=== PATIENT | female | born 1960 | race Caucasian/White ===

== ENCOUNTER 2016-11-22 06:02 | Inpatient (IN) | payer BC ==
--- NOTE | 2016-11-22 05:54 | PCM.PREANE ---
Preanesthetic Assessment - Anesthesia/Transfusion/Family Hx Anesthesia History: Prior Anesthesia Without Reaction Family History of Anesthesia Reaction: No Transfusion History: No Prior Transfusion(s) Intubation History: Unknown - Review of Systems Pulmonary: No Symptoms (quit smoking in 2003.), Cough Cardiovascular: No Symptoms (History of HTN) Gastrointestinal: No symptoms (History of GERD) Neurological: No Symptoms (History of Rheumotoid arthritis), Paresthesia (left foot noted to have some paresthesia's.) Other: Reports: Easy Bruising, Diabetes (AM blood sugar @ 0632 = 112), Thyroid Problems, Sinus Problem (1 week ago patient placed on zithromax for sinus infection.) - Physical Assessment NPO Status Date: 11/21/16 NPO Status Time: 21:00 Pulse: 80 O2 Sat by Pulse Oximetry: 94 Respiratory Rate: 16 Blood Pressure: 135/76 Temperature: 36.6 C Height: 1.52 m Weight: 101 kg ASA Class: 2 Mental Status: Alert & Oriented x3 Airway Class: Mallampati = 2 Dentition: Reports: Ammon(s), Missing Tooth/Teeth, Caries Thyro-Mental Finger Breadths: 3 Mouth Opening Finger Breadths: 3 ROM/Head Extension: Full Lungs: Clear to auscultation, Normal respiratory effort Cardiovascular: Regular Rate, Regular Rhythm - Lab Values: Laboratory Last Values MRSA (PCR) Negative 11/10/16 14:39 - Imaging/EKG Impressions: EKG: Normal Sinus Rhythm CXR: Negative - Allergies Allergies/Adverse Reactions: Allergies Allergy/AdvReac Type Severity Reaction Status Date / Time dapagliflozin [From [facility]] Allergy Rash Verified 11/19/16 09:43 hydrochlorothiazide Allergy vision Verified 11/19/16 09:43 changes - Anesthesia Plan Pre-Op Medication Ordered: None - Acknowledgements Anesthesia Type Planned: Spinal Pt an Appropriate Candidate for the Planned Anesthesia: Yes Alternatives and Risks of Anesthesia Discussed w Pt/Guardian: Yes Pt/Guardian Understands and Agrees with Anesthesia Plan: Yes PreAnesthesia Questionnaire HEENT History: Reports: Impaired vision, Other (see below) Other HEENT History: wears glasses Cardiovascular History: Reports: High cholesterol, Hypertension Respiratory History: Reports: None Gastrointestinal History: Reports: GERD Genitourinary History: Reports: Other (see below) Other Genitourinary History: stress incontinence, urinary disorder [employer] History: Reports: Other (see below) Other OB/BYN History: vaginal hemorrhage, vaginitis Musculoskeletal History: Reports: Osteoarthritis, RA Neurological History: Reports: None Psychiatric History: Reports: None Endocrine/Metabolic History: Reports: Diabetes, type II, Hypothyroidism, Vitamin D deficiency Hematologic History: Reports: Other (see below) Other Hematologic History: leukocystosis Immunologic History: Reports: None Oncologic (Cancer) History: Reports: Other (see below) Other Oncologic History: endometrial Dermatologic History: Reports: Other (see below) Other Dermatologic History: groin furnucle, cutaneous candidasis - Past Surgical History Head Surgeries/Procedures: Reports: None GI Surgical History: Reports: Colonoscopy, Hernia repair/other, Other (see below ) Other GI Surgeries/Procedures: sigmoidoscopy Female Surgical History: Reports: Hysterectomy, Tubal ligation Musculoskeletal Surgical History: Reports: Shoulder surgery, Other (see below) Other Musculoskeletal Surgeries/Procedures:: knee surgery - SUBSTANCE USE Smoking Status *Q: Former Smoker Recreational Drug Use History: No - HOME MEDS Home Medications: Home Meds Aspirin [Halfprin] 81 mg PO DAILY 11/19/16 [History] Calcium Carbonate [Calcium] 500 mg PO DAILY 11/19/16 [History] Canagliflozin/Metformin HCl [Invokamet 150-1,000 mg Tablet] 1 tab PO BID [History] Dulaglutide [Trulicity] 0.5 ml SQ FR 11/19/16 [History] Ergocalciferol (Vitamin D2) [Vitamin D2] 50,000 units PO WE 11/19/16 [History] Ezetimibe [Zetia] 10 mg PO DAILY 11/19/16 [History] Fish Oil/Borage/Flax/Om3,6,9#1 [[place] 3-6-9 Complex Softgel] 1 cap PO DAILY [History] Furosemide [Lasix] 20 mg PO DAILY PRN 11/19/16 [History] Insulin Aspart [NovoLOG] 23 units SQ 1700 11/19/16 [History] Insulin Glarg,Human.Rec.Analog [LantUS Solostar] 40 units SQ BID 11/19/16 [ History] Levothyroxine Sodium [Levothyroxine Sodium] 50 mcg PO DAILY 11/19/16 [History] Levothyroxine [Levothyroxine] 200 mcg PO DAILY 11/19/16 [History] Lisinopril [Prinivil] 40 mg PO DAILY 11/19/16 [History] Multivitamin [Daily Adriana] 1 tab PO DAILY 11/19/16 [History] Omeprazole Magnesium [Prilosec Otc] 40 mg PO DAILY 11/19/16 [History] Oxybutynin Chloride [Oxybutynin Chloride ER] 10 mg PO DAILY 11/19/16 [History] Rosuvastatin [Crestor] 10 mg PO BEDTIME 11/19/16 [History] Simethicone 125 mg PO BID PRN 11/19/16 [History] - CURRENT (IN HOUSE) MEDS Current Meds: Current Medications Diphtheria/Tetanus/Acell Pertussis (Boostrix) 0.5 ml IM .ONCE ONE Stop: 11/21/16 12:16 Lactated Ringer's (Ringers, Lactated) 1,000 mls @ 125 mls/hr IV ASDIRECTED BERTA Lidocaine/Sodium Bicarbonate (Buffered Lidocaine 1% In Ns 8.4%) 0.25 ml IV ONETIME PRN PRN Reason: Prior to IV Start Sodium Chloride (Saline Flush) 10 ml FLUSH ASDIRECTED PRN PRN Reason: Keep Vein Open
[~2016-11-22 06:02] MED LIST: Diphtheria,Pertussis(Acell),Tetanus Vaccine 0.5 ML SDV inactive IM ONE; Lactated Ringers 1,000 ML IV SCH; Lidocaine 1%/Sod Bicarbonate in NS 8.4% 1 ML Syringe IV PRN; Sodium Chloride 0.9% 10 ML Syringe FLUSH PRN; ceFAZolin 1 GM Vial ONE
[2016-11-22] MEDS ORDERED: Ondansetron 4 MG/2 ML SDV ONE (06:23)
[2016-11-22] MEDS ORDERED: ceFAZolin 1 GM Vial ONE (06:23)
[2016-11-22] MEDS ORDERED: Lactated Ringers 1,000 ML ONE (06:23)
[2016-11-22] MEDS ORDERED: Ketorolac 30 MG/ML SDV ONE (06:23)
[2016-11-22] MEDS ORDERED: Midazolam 1 MG/ML 2 ML SDV ONE (06:24)
[2016-11-22] MEDS ORDERED: fentaNYL 100 MCG/2 ML SDV ONE (06:24)
[2016-11-22] MEDS ORDERED: Morphine PF 10 MG/10 ML SDV ONE (06:24)
[2016-11-22] MEDS ORDERED: Propofol 200 MG/20 ML SDV ONE ×2 (06:24→08:20)
[2016-11-22] MEDS ORDERED: Bisacodyl 5 MG Tab PO PRN (06:30)
[2016-11-22] MEDS ORDERED: Ondansetron 4 MG/2 ML SDV IVPUSH PRN ×2 (06:30→07:25)
[2016-11-22] MEDS ORDERED: Phenylephrine/Normal Saline 100 MCG/ML 10 ML Syringe ONE ×2 (07:15→08:29)
[2016-11-22] MEDS ORDERED: ePHEDrine 50 MG/ML SDV IVPUSH PRN (07:25)
[2016-11-22] MEDS ORDERED: diphenhydrAMINE 50 MG/ML SDV IVPUSH PRN (07:25)
[2016-11-22] MEDS ORDERED: Phenylephrine 1 MG in Sodium Chloride 0.9% 10 ML IV SCH (07:30)
[2016-11-22] MEDS: ceFAZolin 1 GM Vial ONE ×2 (07:42→08:20)
[2016-11-22] MEDS: Bupivacaine 0.25% 30 ML SDV ONE ×2 (07:42→08:24)
[2016-11-22] MEDS: Iodine/Sodium Iodide 2% Tincture 30 ML Bottle ONE ×2 (07:43→08:14)
[2016-11-22] MEDS: Morphine 8 MG, EPINEPHrine 0.3 MG, Cefuroxime 750 MG, Ketorolac 30 MG, Sodium Chloride ... ONE ×15 (07:44→20:03)
[2016-11-22] MEDS ORDERED: fentaNYL 100 MCG/2 ML SDV IVPUSH PRN (08:30)
[2016-11-22] MEDS ORDERED: HYDROmorphone 0.5 MG/0.5 ML Syringe IVPUSH PRN (08:30)
[2016-11-22] MEDS ORDERED: ePHEDrine/Normal Saline 25 MG/5 ML Syringe ONE (08:58)
[2016-11-22] MEDS ORDERED: Morphine 2 MG/ML Syringe IVPUSH PRN (09:00)
--- NOTE | 2016-11-22 09:11 | PCM.POSTAN ---
POST ANESTHESIA ASSESSMENT - MENTAL STATUS Mental Status: alert - VITAL SIGNS Pulse Rate: 84 SaO2: 94 Resp Rate: 16 Blood Pressure: 108/54 Temperature: 37.6 C - RESPIRATORY Respiratory Status: respiratory rate WNL, airway patent, O2 saturation stable, supplemental oxygen - CARDIOVASCULAR CV Status: pulse rate WNL, blood pressure stable - GASTROINTESTINAL GI Status: no symptoms - POST OP HYDRATION Hydration Status: adequate & stable
[2016-11-22] MEDS ORDERED: Naloxone 0.4 MG/ML SDV IVPUSH PRN (10:00)
--- NOTE | 2016-11-22 11:09 | PCM.OPNOTE ---
- General Post-Op/Procedure Note Date of Surgery/Procedure: 11/22/16 Operative Procedure(s): right total knee arthroplasty Pre Op Diagnosis: right total knee arthroplasty Post-Op Diagnosis: Same Anesthesia Technique: Local, MAC, Spinal Primary Surgeon: Paul Bennett Anesthesia Provider: Janett Herring [employer] Servicer Helper: Christen Gutierrez Industrial Gas Servicer Helper: Do Daniels EBL in mLs: 250 Complications: None Condition: Good Free Text/Narrative:: Intake & Output 11/21/16 11/22/16 11/22/16 22:59 06:59 14:59 Intake Total 400 Output Total 500 Balance -100 size 4 femur s size 3 tibia size 9mm poly 29x9
--- NOTE | 2016-11-22 11:43 | CR ---
Right knee: AP and lateral views of the right knee were obtained. Comparison: No previous knee study. Knee prosthesis is seen. Components are aligned. Soft tissue air is noted from the surgical procedure. Underlying bony structures are intact. Impression: 1. Satisfactory appearance of recently placed right knee prosthesis. Diagnostic code #2
[2016-11-22] MEDS: Acetaminophen/oxyCODONE 325-5 MG Tab PO PRN ×3 (12:22→21:34)
--- NOTE | 2016-11-22 13:23 | PCM.CONS ---
[id number] Date of Service: 11/22/16 Admit Problem/Dx: Admission Diagnosis/Problem Admission Diagnosis/Problem Osteoarthritis of knee Source of Information: Patient, Old records History Limitations: Reports: No limitations - History of Present Illness Initial Comments - Free Text/Narative: Malena is a 56yo female with PMH of obesity, IDDM, HTN, HLD, GERD, RA, OA, hypothyroidism, hypovitaminosis D, stress incontinence, endometrial cancer, and cutaneous candidias who is s/p Rt TKA with Dr. Bennett. She has had ongoing knee pain for years and decision made to undergo TKA. Postoperatively pain is under good control. No nausea thus far. Doing well, VSS. Onset of Symptoms: Reports: gradual Duration of Symptoms: Reports: Chronic Location: Reports: lower extremity, right Right Knee Pain Score (Numeric/FACES): 5 - Related Data Allergies/Adverse Reactions: Allergies Allergy/AdvReac Type Severity Reaction Status Date / Time dapagliflozin [From [facility]] Allergy Rash Verified 11/22/16 06:59 hydrochlorothiazide AdvReac vision Verified 11/22/16 12:18 changes Home Medications: Home Meds Calcium Carbonate [Calcium] 500 mg PO DAILY 11/19/16 [History] Canagliflozin/Metformin HCl [Invokamet 150-1,000 mg Tablet] 1 tab PO BID [History] Dulaglutide [Trulicity] 0.5 ml SQ FR 11/19/16 [History] Ergocalciferol (Vitamin D2) [Vitamin D2] 50,000 units PO WE 11/19/16 [History] Ezetimibe [Zetia] 10 mg PO DAILY 11/19/16 [History] Fish Oil/Borage/Flax/Om3,6,9#1 [[place] 3-6-9 Complex Softgel] 1 cap PO DAILY [History] Furosemide [Lasix] 20 mg PO DAILY PRN 11/19/16 [History] Insulin Aspart [NovoLOG] 23 units SQ 1700 11/19/16 [History] Insulin Glarg,Human.Rec.Analog [LantUS Solostar] 40 units SQ BID 11/19/16 [ History] Levothyroxine 200 mcg PO DAILY 11/19/16 [History] Levothyroxine Sodium 50 mcg PO DAILY 11/19/16 [History] Lisinopril [Prinivil] 40 mg PO DAILY 11/19/16 [History] Multivitamin [Daily Adriana] 1 tab PO DAILY 11/19/16 [History] Omeprazole Magnesium [Prilosec Otc] 40 mg PO DAILY 11/19/16 [History] Oxybutynin Chloride [Oxybutynin Chloride ER] 10 mg PO DAILY 11/19/16 [History] Rosuvastatin [Crestor] 10 mg PO BEDTIME 11/19/16 [History] Simethicone 125 mg PO BID PRN 11/19/16 [History] Acetaminophen/oxyCODONE [Percocet 325-5 MG] 1 - 2 tab PO Q4H PRN #60 tablet [Rx] Aspirin [Ecotrin] 325 mg PO BID #84 tab.ec 11/23/16 [Rx] Cyclobenzaprine [Flexeril] 10 mg PO TID PRN #40 tablet 11/23/16 [Rx] Past Medical History HEENT History: Reports: Impaired vision, Other (see below) Other HEENT History: wears glasses Cardiovascular History: Reports: High cholesterol, Hypertension Respiratory History: Reports: None Gastrointestinal History: Reports: GERD Genitourinary History: Reports: Other (see below) Other Genitourinary History: stress incontinence, urinary disorder HEALTH EDITOR History: Reports: Other (see below) Other OB/BYN History: vaginal hemorrhage, vaginitis Musculoskeletal History: Reports: Osteoarthritis, RA Neurological History: Reports: None Psychiatric History: Reports: None Endocrine/Metabolic History: Reports: Diabetes, type II, Hypothyroidism, Vitamin D deficiency Hematologic History: Reports: Other (see below) Other Hematologic History: leukocystosis Immunologic History: Reports: None Oncologic (Cancer) History: Reports: Uterine, Other (see below) Other Oncologic History: endometrial Dermatologic History: Reports: Other (see below) Other Dermatologic History: groin furnucle, cutaneous candidasis - Infectious Disease History Infectious Disease History: Reports: None - Past Surgical History Head Surgeries/Procedures: Reports: None HEENT Surgical History: Reports: None Cardiovascular Surgical History: Reports: None GI Surgical History: Reports: Colonoscopy, Hernia repair/other, Other (see below ) Other GI Surgeries/Procedures: sigmoidoscopy Female Surgical History: Reports: Hysterectomy, Tubal ligation Endocrine Surgical History: Reports: None Neurological Surgical History: Reports: None Musculoskeletal Surgical History: Reports: Shoulder surgery, Other (see below) Other Musculoskeletal Surgeries/Procedures:: knee surgery Oncologic Surgical History: Reports: None Dermatological Surgical History: Reports: None Social & Family History - Family History Family Medical History: Noncontributory - Tobacco Use Smoking Status *Q: Former Smoker Years of Tobacco use: 30 Used Tobacco, but Quit: Yes Month Tobacco Last Used: 2003 - Caffeine Use Caffeine Use: Reports: Tea - Recreational Drug Use Recreational Drug Use: No Drug Use in Last 12 Months: No H&P Review of Systems - Review of Systems: Review Of Systems: See Below General: Reports: no symptoms HEENT: Reports: no symptoms Pulmonary: Reports: No Symptoms. Denies: Shortness of Breath Cardiovascular: Reports: no symptoms. Denies: chest pain, palpitations Gastrointestinal: Reports: No symptoms, Mucous in stool Musculoskeletal: Reports: leg pain (rt knee/leg) Skin: Reports: no symptoms Psychiatric: Reports: no symptoms Neurological: Reports: No Symptoms Hematologic/Lymphatic: Reports: no symptoms Exam - Exam Exam: See Below - Vital Signs Vital Signs: Last Vital Signs Temp 98.8 F 11/22/16 12:00 Pulse 68 11/22/16 11:13 Resp 14 11/22/16 12:00 BP 86/59 L 11/22/16 12:00 Pulse Ox 98 11/22/16 12:00 Weight: 100.97 kg - Exam Quality Assessment: supplemental oxygen, DVT prophylaxis General: alert, oriented, cooperative HEENT: Conjunctiva clear, EACs clear, EOMI, Hearing intact, Mucosa moist & pink , Nares patent, Posterior pharynx clear, Pupils reactive Neck: supple, trachea midline Lungs: Clear to auscultation, Normal respiratory effort Cardiovascular: regular rate, regular rhythm, normal S1, normal S2 Abdomen: normal bowel sounds, soft (Female) Exam: Deferred Rectal (Female) Exam: Deferred Extremities: other (CMS + distally bilat; SCD's bilat; jaqueline wraps). No: edema Peripheral Pulses: 1+: dorsalis pedis (L), dorsalis pedis (R) Skin: warm Neurological: cranial nerves intact Neuro Extensive - Mental Status: alert, oriented x3, normal mood/affect, memory intact Neuro Extensive - Motor, Sensory, Reflexes: CN II-XII intact Psychiatric: alert, normal affect, normal mood - Patient Data Lab Results last 24 hrs: Laboratory Results - last 24 hr 11/22/16 11/22/16 Range/Units 06:32 09:10 POC Glucose 112 H 119 H (70-105) mg/dL Consult PN Assessment/Plan POD#: 0 Procedures: Procedures ASSAY OF FERRITIN (07/05/14) ASSAY OF FREE THYROXINE (10/23/14) ASSAY OF PREALBUMIN (07/05/14) ASSAY OF SERUM ALBUMIN (07/05/14) ASSAY THYROID STIM HORMONE (10/23/14) CHEST X-RAY 2VW FRONTAL&LATL (07/05/14) COMP SCREEN MAMMOGRAM ADD-ON (06/15/16) COMPLETE CBC W/AUTO DIFF WBC (07/05/14) COMPREHEN METABOLIC PANEL (10/23/14) CT ABD & PELV W/CONTRAST (07/22/16) CT THORAX W/DYE (07/22/16) GLYCOSYLATED HEMOGLOBIN TEST (07/05/14) LIPID PANEL (03/25/14) METABOLIC PANEL TOTAL CA (07/05/14) MR-STAPH DNA AMP PROBE (07/14/16) PROTHROMBIN TIME (07/05/14) ROUTINE VENIPUNCTURE (10/23/14) THROMBOPLASTIN TIME PARTIAL (07/05/14) TISSUE EXAM BY PATHOLOGIST (06/30/16) TRANSVAGINAL US NON-OB (05/09/15) VITAMIN D 25 HYDROXY (07/05/14) (1) S/P total knee arthroplasty SNOMED Code(s): 7384945947161, 628514394, 1217175304434 Code(s): Z96.659 - PRESENCE OF UNSPECIFIED ARTIFICIAL KNEE JOINT Priority: High Current Visit: Yes Qualifiers: Laterality: right Qualified Code(s): Z96.651 - Presence of right artificial knee joint (2) Osteoarthritis SNOMED Code(s): 044337736 Code(s): M19.90 - UNSPECIFIED OSTEOARTHRITIS, UNSPECIFIED SITE Priority: High Current Visit: Yes Qualifiers: Osteoarthritis location: knee Osteoarthritis type: primary Laterality: right Qualified Code(s): M17.11 - Unilateral primary osteoarthritis, right knee (3) Type 2 diabetes mellitus SNOMED Code(s): 69823195 Code(s): E11.9 - TYPE 2 DIABETES MELLITUS WITHOUT COMPLICATIONS Priority: High Current Visit: Yes Qualifiers: Diabetes mellitus complication status: with unspecified complications Diabetes mellitus joint terminal attack controller insulin use: with senior living use Qualified Code(s) : E11.8 - Type 2 diabetes mellitus with unspecified complications; Z79.4 - terminal manager (current) use of insulin (4) Obesity SNOMED Code(s): 417826495 Code(s): E66.9 - OBESITY, UNSPECIFIED Priority: High Current Visit: Yes Qualifiers: Obesity type: unspecified obesity type Obesity severity: morbid Qualified Code(s): E66.01 - Morbid (severe) obesity due to excess calories (5) HTN (hypertension) SNOMED Code(s): 62253468 Code(s): I10 - ESSENTIAL (PRIMARY) HYPERTENSION Priority: High Current Visit: No Qualifiers: Hypertension type: essential hypertension Qualified Code(s): I10 - Essential (primary) hypertension (6) HLD (hyperlipidemia) SNOMED Code(s): 92690806 Code(s): E78.5 - HYPERLIPIDEMIA, UNSPECIFIED Priority: Medium Current Visit: No Qualifiers: Hyperlipidemia type: unspecified Qualified Code(s): E78.5 - Hyperlipidemia , unspecified (7) Hypothyroid SNOMED Code(s): 23793986 Code(s): E03.9 - HYPOTHYROIDISM, UNSPECIFIED Priority: Medium Current Visit: No Qualifiers: Hypothyroidism type: unspecified Qualified Code(s): E03.9 - Hypothyroidism , unspecified (8) GERD (gastroesophageal reflux disease) SNOMED Code(s): 377141985 Code(s): K21.9 - GASTRO-ESOPHAGEAL REFLUX DISEASE WITHOUT ESOPHAGITIS Priority: Medium Current Visit: No Qualifiers: Esophagitis presence: esophagitis presence not specified Qualified Code(s) : K21.9 - Gastro-esophageal reflux disease without esophagitis (9) Rheumatoid arthritis SNOMED Code(s): 18015721 Code(s): M06.9 - RHEUMATOID ARTHRITIS, UNSPECIFIED Priority: Medium Current Visit: No Qualifiers: Laterality: unspecified laterality Problem List Initiated/Reviewed/Updated: Yes My Orders last 24 hours: My Active Orders 11/22/16 Dinner ADA Diabetic [[employer] Diet] [DIET] Heart Healthy Diet [DIET] Plan: S/P Rt TKA with Dr. Bennett; POD #0 -Pain management and DVT prophylax per Ortho/primary team -PT/OT -IS -VSS Chronic conditions: cont home meds IDDM- SSI coverage, AC/HS accuchecks- ADA diet HTN- heart healthy diet HLD Hypothyroid RA Stress incontinence Hx of cutaneous candidiasis- risk for postoperatively, monitor skin closely GERD- GI prophylax Other: CM/SW for assist with DC planning; plans dc home with Patient is Full Code status <Daylin Lauren - Last Filed: 11/23/16 19:27> H&P History of Present Illness - General Admit Problem/Dx: Admission Diagnosis/Problem Admission Diagnosis/Problem Osteoarthritis of knee Exam - Vital Signs Vital Signs: Last Vital Signs Temp 36.7 C 11/23/16 12:03 Pulse 92 11/23/16 12:03 Resp 14 11/23/16 12:03 BP 113/60 11/23/16 12:03 Pulse Ox 93 L 11/23/16 12:03 - Patient Data Lab Results last 24 hrs: Laboratory Results - last 24 hr 11/22/16 11/23/16 11/23/16 Range/Units 21:38 06:34 06:34 WBC 8.29 (3.98-10.04) K/mm3 RBC 3.95 L (3.98-5.22) M/mm3 Hgb 12.1 (11.2-15.7) gm/L Hct 36.5 (34.1-44.9) % MCV 92.4 (79.4-94.8) fl MCH 30.6 (25.6-32.2) pg MCHC 33.2 (32.2-35.5) g/dl RDW Std Deviation 46.3 (36.4-46.3) fL Plt Count 235 (182-369) K/mm3 MPV 9.8 (9.4-12.3) fl Neut % (Auto) 50.7 (34.0-71.1) % Lymph % (Auto) 33.4 (19.3-51.7) % [place] % (Auto) 13.4 H (4.7-12.5) % Eos % (Auto) 2.2 (0.7-5.8) Baso % (Auto) 0.2 (0.1-1.2) % Neut # (Auto) 4.20 (1.56-6.13) K/mm3 Lymph # (Auto) 2.77 (1.18-3.74) K/mm3 [place] # (Auto) 1.11 H (0.24-0.36) K/mm3 Eos # (Auto) 0.18 (0.04-0.36) K/mm3 Baso # (Auto) 0.02 (0.01-0.08) K/mm3 Sodium 137 (136-145) mEq/L Potassium 4.4 (3.5-5.1) mEq/L Chloride 102 (98-107) mEq/L Carbon Dioxide 26 (21-32) mEq/L Anion Gap 13.4 (5-15) BUN 14 (7-18) mg/dL Creatinine 0.9 (0.55-1.02) mg/dL Est Cr Clr Drug Dosing 50.73 mL/min Estimated GFR (MDRD) > 60 (>60) mL/min BUN/Creatinine Ratio 15.6 (14-18) Glucose 89 (74-106) mg/dL POC Glucose 118 H (70-105) mg/dL Calcium 8.5 (8.5-10.1) mg/dL Total Bilirubin 0.9 (0.2-1.0) mg/dL AST 15 (15-37) U/L ALT 27 (14-59) U/L Alkaline Phosphatase 59 (46-116) U/L Total Protein 6.2 L (6.4-8.2) g/dl Albumin 3.1 L (3.4-5.0) g/dl Globulin 3.1 gm/dL Albumin/Globulin Ratio 1.0 (1-2) 11/23/16 11/23/16 Range/Units 06:56 10:33 WBC (3.98-10.04) K/mm3 RBC (3.98-5.22) M/mm3 Hgb (11.2-15.7) gm/L Hct (34.1-44.9) % MCV (79.4-94.8) fl MCH (25.6-32.2) pg MCHC (32.2-35.5) g/dl RDW Std Deviation (36.4-46.3) fL Plt Count (182-369) K/mm3 MPV (9.4-12.3) fl Neut % (Auto) (34.0-71.1) % Lymph % (Auto) (19.3-51.7) % [place] % (Auto) (4.7-12.5) % Eos % (Auto) (0.7-5.8) Baso % (Auto) (0.1-1.2) % Neut # (Auto) (1.56-6.13) K/mm3 Lymph # (Auto) (1.18-3.74) K/mm3 [place] # (Auto) (0.24-0.36) K/mm3 Eos # (Auto) (0.04-0.36) K/mm3 Baso # (Auto) (0.01-0.08) K/mm3 Sodium (136-145) mEq/L Potassium (3.5-5.1) mEq/L Chloride (98-107) mEq/L Carbon Dioxide (21-32) mEq/L Anion Gap (5-15) BUN (7-18) mg/dL Creatinine (0.55-1.02) mg/dL Est Cr Clr Drug Dosing mL/min Estimated GFR (MDRD) (>60) mL/min BUN/Creatinine Ratio (14-18) Glucose (74-106) mg/dL POC Glucose 95 99 (70-105) mg/dL Calcium (8.5-10.1) mg/dL Total Bilirubin (0.2-1.0) mg/dL AST (15-37) U/L ALT (14-59) U/L Alkaline Phosphatase (46-116) U/L Total Protein (6.4-8.2) g/dl Albumin (3.4-5.0) g/dl Globulin gm/dL Albumin/Globulin Ratio (1-2) Result Diagrams: 11/23/16 06:34 11/23/16 06:34 Consult PN Assessment/Plan Procedures: Procedures ASSAY OF FERRITIN (07/05/14) ASSAY OF FREE THYROXINE (10/23/14) ASSAY OF PREALBUMIN (07/05/14) ASSAY OF SERUM ALBUMIN (07/05/14) ASSAY THYROID STIM HORMONE (10/23/14) CHEST X-RAY 2VW FRONTAL&LATL (07/05/14) COMP SCREEN MAMMOGRAM ADD-ON (06/15/16) COMPLETE CBC W/AUTO DIFF WBC (07/05/14) COMPREHEN METABOLIC PANEL (03/18/15) CT ABD & PELV W/CONTRAST (07/22/16) CT THORAX W/DYE (07/22/16) GLYCOSYLATED HEMOGLOBIN TEST (07/05/14) LIPID PANEL (03/25/14) METABOLIC PANEL TOTAL CA (07/05/14) MR-STAPH DNA AMP PROBE (07/14/16) PROTHROMBIN TIME (07/05/14) ROUTINE VENIPUNCTURE (10/23/14) THROMBOPLASTIN TIME PARTIAL (07/05/14) TISSUE EXAM BY PATHOLOGIST (06/30/16) TRANSVAGINAL US NON-OB (05/09/15) VITAMIN D 25 HYDROXY (07/05/14) Plan: Agree with plan of care
[2016-11-22] MEDS ORDERED: 50% Dextrose in Water 50 ML Syringe IVPUSH PRN (13:29)
[2016-11-22] MEDS: Ketorolac 15 MG/ML SDV IVPUSH PRN (15:12)
[2016-11-22] MEDS: ceFAZolin 2 GM in Premix Bag 1 BAG IV SCH ×2 (15:12→21:36)
[2016-11-22] MEDS ORDERED: Insulin Aspart 100 Units/ML 3 ML Pen SUBCUT SCH (17:00)
[2016-11-22] MEDS: Insulin Aspart 100 Units/ML 3 ML Pen SUBCUT SCH ×2 (17:35→21:41)
[2016-11-22] MEDS: Famotidine 20 MG Tab PO SCH ×2 (17:40→18:29)
[2016-11-22] MEDS ORDERED: Magnesium Hydroxide 400 MG/5 ML Susp 30 ML Cup PO PRN (21:00)
[2016-11-22] MEDS ORDERED: Sennosides 8.6 MG Tab PO PRN (21:00)
[2016-11-22] MEDS ORDERED: Simethicone 80 MG Tab.Chew PO PRN (21:00)
[2016-11-22] MEDS ORDERED: Rosuvastatin 10 MG Tab PO SCH (21:00)
[2016-11-22] MEDS: CANAGLIFLOZIN PO SCH (21:35)
[2016-11-22] MEDS: Docusate Sodium 100 MG Cap PO SCH (21:35)
[2016-11-22] MEDS: METFORMIN HCL PO SCH (21:35)
[2016-11-22] MEDS: Cyclobenzaprine 10 MG Tab PO PRN (21:35)
--- NOTE | 2016-11-22 21:39 | OR ---
DATE OF OPERATION: 11/22/2016 SURGEON: Paul Bennett MD OPERATION PERFORMED: Right total knee arthroplasty. PREOPERATIVE DIAGNOSIS: Right knee osteoarthrosis. POSTOPERATIVE DIAGNOSIS: Right knee osteoarthrosis. ANESTHESIA: Local MAC with spinal. ANESTHESIA PROVIDER: Janett Herring CRNA SAMPLE COORDINATOR: Christen Gutierrez PA-C, and Matt Daniels M.D. ESTIMATED BLOOD LOSS: 250 mL. COMPLICATIONS: None. CONDITION: Stable. IMPLANTS: 1. [place] size 4 PS femur. 2. [place] size 3 universal tibial baseplate. 3. [place] size 3, 9 mm PS polyethylene. 4. [place] 29 x 9 mm asymmetric patella. DESCRIPTION OF PROCEDURE: The patient was identified in the preop holding area. Proper site was marked and identified by the surgeon. The patient was taken back to the operating theater. After adequate anesthesia, the patient's right lower extremity had a nonsterile tourniquet applied and it was then sterilely prepped and draped in the usual sterile fashion. OR timeout was performed. The patient received 2 g IV Ancef. At this time, right lower extremity was exsanguinated. Tourniquet was insufflated to 300 mmHg. Standard medial parapatellar incision was made. Medial parapatellar arthrotomy was created. Deep fibers of the MCL were raised and anterior fat pad was resected. At this time, attention was turned to the patella. Patella measured 22, it was resected to a 13, for a 29 x 9 patella. Drill holes were then drilled and found to be in adequate position. The drill was then drilled in the distal femur and the intramedullary distal femoral cutting guide was then placed. 8 mm was resected off the distal femur and was found to be an adequate resection. Sizing guide was placed. It was found to be a size femur that was shown on the implant record at the beginning of this dictation. The drill holes were drilled for the epicondylar axis using [place] line and epicondyles as reference. At this time, the 4-in-1 cutting block was placed. An anterior posterior and anterior and posterior chamfer cuts were then completed. The correct size box cut was then placed and the box cut was completed and found to be an adequate resection. Attention was turned to the tibia. The posterior medial lateral retractors were placed. The extramedullary tibial guide was placed. It was placed in the old footprint of the ACL. It was aligned with the center of the ankle and 0 degrees of slope, 9 mm was then resected off the unaffected lateral side. There was found to be an acceptable reduction. At this time, posterior osteophytes were removed along with medial and lateral meniscus. A trial implant was placed with a correct sized tibia that was mentioned at the beginning of the dictation. A 9 mm X3 polyethylene was then placed. The patient's knee was brought through range of motion. The patella was tracking centrally and was stable to varus and valgus stress. Alignment was found to be roughly at 0 degrees. At this time, cement was mixed on the back table. The tibia was stamped and drilled in proper rotation. All cut surfaces were irrigated with pulse lavage irrigation with Ancef and then completely dried. Once this was completed, then the cement was ready. The universal tibial base plate was cemented in place. Next, the femur was cemented into place and the 9 mm x 3 polyethylene was placed. The patient's knee was brought into full extension. Excess cement was removed. The patella was then cemented in place at this time. Tourniquet was deflated. One liter dilute Betadine solution was irrigated through the knee along with 3 L of pulse lavage irrigation with Ancef. Periarticular injection was then completed. The patient's knee was brought through a range of motion. Once the cement had time to set up and it was found to be stable to varus valgus stress, the patella was tracking centrally with full range of motion. At this time, a #2 barbed suture was used for closure of the medial parapatellar arthrotomy. Topical tranexamic acid was placed. 2-0 Vicryl was used subcutaneously, a running 3-0 Monocryl was used subcuticularly. The patient tolerated the procedure well and was sent to the PACU in stable condition. MMODAL /[id number]
[2016-11-22] MEDS: Insulin Detemir 100 Units/ML 3 ML Pen SUBCUT SCH (21:40)
[2016-11-23] MEDS: Acetaminophen/oxyCODONE 325-5 MG Tab PO PRN ×4 (03:08→14:38)
[2016-11-23] MEDS: Ketorolac 15 MG/ML SDV IVPUSH PRN (03:09)
--- NOTE | 2016-11-23 06:34 | PCM.CONSN ---
[id number] Admission Dx/Problem (Free Text): Admission Diagnosis/Problem Admission Diagnosis/Problem Osteoarthritis of knee S/P Rt TKA with Dr. Bennett, POD #1 Doing well, working with PT. No nausea VSS Hgb this am 12.1 Plans dc home with today Functional Status: Reports: pain controlled, tolerating diet, ambulating, urinating (plan for dc alvarez this am). Denies: new symptoms - Review of Systems General: Reports: No Symptoms HEENT: Reports: no symptoms Pulmonary: Reports: no symptoms Cardiovascular: Reports: No Symptoms Gastrointestinal: Reports: No symptoms Genitourinary: Reports: no symptoms Musculoskeletal: Reports: leg pain Skin: Reports: no symptoms Neurological: Reports: No Symptoms Psychiatric: Reports: no symptoms - Patient Data Vitals - most recent: Last Vital Signs Temp 97.2 F 11/23/16 06:13 Pulse 68 11/23/16 06:13 Resp 18 11/23/16 06:13 BP 89/66 L 11/23/16 06:13 Pulse Ox 98 11/23/16 06:13 Weight - most recent: 100.97 kg I&O - last 24 hours: Intake & Output 11/22/16 11/22/16 11/23/16 14:59 22:59 06:59 Intake Total 400 1920 700 Output Total 500 1350 675 Balance -100 570 25 Lab Results last 24 hrs: Laboratory Results - last 24 hr 11/22/16 11/22/16 11/22/16 Range/Units 06:32 09:10 17:32 POC Glucose 112 H 119 H 122 H (70-105) mg/dL 11/22/16 Range/Units 21:38 POC Glucose 118 H (70-105) mg/dL Med Orders - Current: Current Medications Aspirin (Ecotrin) 325 mg PO BID [facility] Bisacodyl (Dulcolax) 5 mg PO DAILY PRN PRN Reason: Constipation Calcium Carbonate/Glycine (Tums) 500 mg PO DAILY [facility] Cyclobenzaprine HCl (Flexeril) 10 mg PO TID PRN PRN Reason: Spasms Last Admin: 11/22/16 21:35 Dose: 10 mg Dextrose/Water (Dextrose 50% In Water) 50 ml IVPUSH ASDIRECTED PRN PRN Reason: Hypoglycemia Docusate Sodium (Colace) 100 mg PO BID [facility] Last Admin: 11/22/16 21:35 Dose: 100 mg Ezetimibe (Zetia) 10 mg PO DAILY [facility] Ergocalciferol (Vitamin D2) 50,000 units PO WE [facility] Famotidine (Pepcid) 20 mg PO Q12H [facility] Last Admin: 11/22/16 18:29 Dose: Not Given Furosemide (Lasix) 20 mg PO DAILY PRN PRN Reason: swelling Cefazolin Sodium/Dextrose 2 gm (/ Premix) 50 mls @ 100 mls/hr IV Q8H [facility] Stop: 11/23/16 06:59 Last Admin: 11/22/16 21:36 Dose: 100 mls/hr Insulin Aspart (Novolog) 23 unit SUBCUT 1700 [facility] Last Admin: 11/22/16 17:38 Dose: 23 units Insulin Aspart (Novolog) 0 unit SUBCUT QIDACANDBED [facility] PRN Reason: Protocol Last Admin: 11/22/16 21:41 Dose: Not Given Insulin Detemir (Levemir) 40 unit SUBCUT BID [facility] Last Admin: 11/22/16 21:40 Dose: 40 units Levothyroxine Sodium (Levothyroxine) 200 mcg PO WITHBREAKFAST [facility] Levothyroxine Sodium (Synthroid) 50 mcg PO WITHBREAKFAST [facility] Lisinopril (Prinivil) 40 mg PO DAILY [facility] Magnesium Hydroxide (Milk Of Magnesia) 30 ml PO BID PRN PRN Reason: Constipation Morphine Sulfate (Morphine) 2 mg IVPUSH Q2H PRN PRN Reason: Breakthrough Pain Multivitamins (Thera) 1 each PO WITHBREAKFAST [facility] Ondansetron HCl (Zofran) 4 mg IVPUSH Q6H PRN PRN Reason: Nausea/Vomiting Last Admin: 11/22/16 16:52 Dose: 4 mg Oxybutynin Chloride (Oxybutynin Er) 10 mg PO DAILY [facility] Oxycodone/Acetaminophen (Percocet 325-5 Mg) 1 - 2 tab PO Q4H PRN PRN Reason: Pain Last Admin: 11/23/16 03:08 Dose: 2 tab Canagliflozin/Metformin Hcl [ Invokamet 150-1,000 Mg Table 0 each PO BID [facility] Last Admin: 11/22/16 21:35 Dose: 1 each Dulaglutide [ (Trulicity] 0.5 Ml) 0 each SUBCUT FR [facility] Rosuvastatin Calcium (Crestor) 10 mg PO BEDTIME BERTA Last Admin: 11/22/16 21:35 Dose: 10 mg Senna (Senna) 8.6 mg PO BID PRN PRN Reason: Constipation Simethicone (Simethicone) 80 mg PO BID PRN PRN Reason: Dyspepsia Sodium Chloride (Saline Flush) 10 ml FLUSH ASDIRECTED PRN PRN Reason: Keep Vein Open Discontinued Medications Bupivacaine HCl (Marcaine 0.25%) Confirm Administered Dose 30 ml .ROUTE .STK- MED ONE Stop: 11/22/16 06:02 Last Admin: 11/22/16 08:24 Dose: 30 ml Cefazolin Sodium (Ancef) Confirm Administered Dose 1 gm .ROUTE .STK-MED ONE Stop: 11/22/16 06:02 Last Admin: 11/22/16 08:20 Dose: 2 gm Cefazolin Sodium (Ancef) Confirm Administered Dose 1 gm .ROUTE .STK-MED ONE Stop: 11/22/16 06:02 Cefazolin Sodium (Ancef) Confirm Administered Dose 2 gm .ROUTE .STK-MED ONE Stop: 11/22/16 06:24 Morphine Sulfate 8 mg/Epinephrine HCl 0.3 mg/Cefuroxime Sodium 750 mg/Ketorolac Tromethamine 30 mg/Sodium Chloride 27.9 ml 0 mg .XX ONETIME ONE Stop: 11/22/16 07:46 Last Admin: 11/22/16 20:03 Dose: Not Given Diphenhydramine HCl (Benadryl) 25 mg IVPUSH Q6H PRN PRN Reason: pruritis Stop: 11/22/16 18:00 Diphtheria/Tetanus/Acell Pertussis (Boostrix) 0.5 ml IM .ONCE ONE Stop: 11/21/16 12:16 Ephedrine Sulfate (Ephedrine Sulfate) 5 mg IVPUSH ASDIRECTED PRN PRN Reason: Hypotension Stop: 11/22/16 18:00 Ephedrine Sulfate (Ephedrine In Ns) Confirm Administered Dose 25 mg .ROUTE .STK- MED ONE Stop: 11/22/16 08:59 Fentanyl (Sublimaze) Confirm Administered Dose 100 mcg .ROUTE .STK-MED ONE Stop: 11/22/16 06:25 Fentanyl (Sublimaze) 50 mcg IVPUSH Q5M PRN PRN Reason: Pain Stop: 11/22/16 08:46 Hydromorphone HCl (Dilaudid) 0.5 mg IVPUSH Q15M PRN PRN Reason: severe pain Stop: 11/22/16 08:46 Lactated Ringer's (Ringers, Lactated) 1,000 mls @ 125 mls/hr IV ASDIRECTED [facility] Last Admin: 11/22/16 06:45 Dose: 125 mls/hr Lidocaine HCl (Xylocaine-Mpf 1%) Confirm Administered Dose 10 mls @ as directed .ROUTE .STK-MED ONE Stop: 11/22/16 06:24 Lactated Ringer's (Ringers, Lactated) Confirm Administered Dose 1,000 mls @ as directed .ROUTE .STK-MED ONE Stop: 11/22/16 06:24 Phenylephrine HCl 1 mg/ Sodium (Chloride) 10.1 mls @ 1 mls/sec IV TITRATE BERTA Stop: 11/22/16 16:00 Iodine (Iodine 2% Mild Tincture) Confirm Administered Dose 30 ml .ROUTE .STK- MED ONE Stop: 11/22/16 06:02 Last Admin: 11/22/16 08:14 Dose: 30 ml Ketorolac Tromethamine (Toradol) Confirm Administered Dose 30 mg .ROUTE .STK- MED ONE Stop: 11/22/16 06:24 Ketorolac Tromethamine (Toradol) 15 mg IVPUSH Q8H PRN PRN Reason: Pain Stop: 11/23/16 04:01 Last Admin: 11/23/16 03:09 Dose: 15 mg Lidocaine/Sodium Bicarbonate (Buffered Lidocaine 1% In Ns 8.4%) 0.25 ml IV ONETIME PRN PRN Reason: Prior to IV Start Last Admin: 11/22/16 06:45 Dose: 0.25 ml Midazolam HCl (Versed 1 Mg/Ml) Confirm Administered Dose 2 mg .ROUTE .STK-MED ONE Stop: 11/22/16 06:25 Morphine Sulfate (Duramorph Pf) Confirm Administered Dose 10 mg .ROUTE .STK-MED ONE Stop: 11/22/16 06:25 Naloxone HCl (Narcan) 0.1 mg IVPUSH Q5M PRN PRN Reason: Oversedation Stop: 11/22/16 10:16 Ondansetron HCl (Zofran) Confirm Administered Dose 4 mg .ROUTE .STK-MED ONE Stop: 11/22/16 06:24 Ondansetron HCl (Zofran) 4 mg IVPUSH ONETIME PRN PRN Reason: Nausea/Vomiting Stop: 11/22/16 16:00 Phenylephrine HCl (Phenylephrine In Ns 100 Mcg/Ml) Confirm Administered Dose 1 mg .ROUTE .STK-MED ONE Stop: 11/22/16 07:16 Phenylephrine HCl (Phenylephrine In Ns 100 Mcg/Ml) Confirm Administered Dose 1 mg .ROUTE .STK-MED ONE Stop: 11/22/16 08:30 Propofol (Diprivan 20 Ml) Confirm Administered Dose 400 mg .ROUTE .STK-MED ONE Stop: 11/22/16 06:25 Propofol (Diprivan 20 Ml) Confirm Administered Dose 200 mg .ROUTE .STK-MED ONE Stop: 11/22/16 08:21 Tranexamic Acid (Cyklokapron) Confirm Administered Dose 1,000 mg .ROUTE .STK- MED ONE Stop: 11/22/16 06:02 Last Admin: 11/22/16 08:35 Dose: 1,000 mg - Exam Quality Assessment: supplemental oxygen, DVT prophylaxis General: alert, oriented, cooperative, no acute distress HEENT: Pupils equal, Pupils reactive, EOMI, Mucous membr. moist/pink Neck: supple Lungs: Clear to auscultation, Normal respiratory effort Cardiovascular: Regular Rate, Regular Rhythm Abdomen: bowel sounds present, soft, no tenderness, no distension (Female) Exam: Deferred Extremities: no edema, other (teds, SCD's and ice to knee) Peripheral Pulses: 1+: dorsalis pedis (L), dorsalis pedis (R) Skin: warm, dry Neurological: no new focal deficit Psy/Mental Status: alert, normal affect, normal mood Consult PN Assessment/Plan POD#: 1 Procedures: Procedures ASSAY OF FERRITIN (07/05/14) ASSAY OF FREE THYROXINE (10/23/14) ASSAY OF PREALBUMIN (07/05/14) ASSAY OF SERUM ALBUMIN (07/05/14) ASSAY THYROID STIM HORMONE (10/23/14) CHEST X-RAY 2VW FRONTAL&LATL (07/05/14) COMP SCREEN MAMMOGRAM ADD-ON (06/15/16) COMPLETE CBC W/AUTO DIFF WBC (07/05/14) COMPREHEN METABOLIC PANEL (10/23/14) CT ABD & PELV W/CONTRAST (07/22/16) CT THORAX W/DYE (07/22/16) GLYCOSYLATED HEMOGLOBIN TEST (07/05/14) LIPID PANEL (03/25/14) METABOLIC PANEL TOTAL CA (07/05/14) MR-STAPH DNA AMP PROBE (07/14/16) PROTHROMBIN TIME (07/05/14) ROUTINE VENIPUNCTURE (10/23/14) THROMBOPLASTIN TIME PARTIAL (07/05/14) TISSUE EXAM BY PATHOLOGIST (06/30/16) TRANSVAGINAL US NON-OB (05/09/15) VITAMIN D 25 HYDROXY (07/05/14) (1) S/P total knee arthroplasty SNOMED Code(s): 3344722354947, 970857080, 1232723827288 Code(s): Z96.659 - PRESENCE OF UNSPECIFIED ARTIFICIAL KNEE JOINT Priority: High Current Visit: Yes (2) Osteoarthritis SNOMED Code(s): 725454054 Code(s): M19.90 - UNSPECIFIED OSTEOARTHRITIS, UNSPECIFIED SITE Priority: High Current Visit: Yes (3) Type 2 diabetes mellitus SNOMED Code(s): 69729986 Code(s): E11.9 - TYPE 2 DIABETES MELLITUS WITHOUT COMPLICATIONS Priority: High Current Visit: Yes (4) Obesity SNOMED Code(s): 195734978 Code(s): E66.9 - OBESITY, UNSPECIFIED Priority: High Current Visit: Yes (5) HTN (hypertension) SNOMED Code(s): 27165692 Code(s): I10 - ESSENTIAL (PRIMARY) HYPERTENSION Priority: High Current Visit: No (6) HLD (hyperlipidemia) SNOMED Code(s): 80087989 Code(s): E78.5 - HYPERLIPIDEMIA, UNSPECIFIED Priority: Medium Current Visit: No (7) Hypothyroid SNOMED Code(s): 50657722 Code(s): E03.9 - HYPOTHYROIDISM, UNSPECIFIED Priority: Medium Current Visit: No (8) GERD (gastroesophageal reflux disease) SNOMED Code(s): 595507128 Code(s): K21.9 - GASTRO-ESOPHAGEAL REFLUX DISEASE WITHOUT ESOPHAGITIS Priority: Medium Current Visit: No (9) Rheumatoid arthritis SNOMED Code(s): 30664252 Code(s): M06.9 - RHEUMATOID ARTHRITIS, UNSPECIFIED Priority: Medium Current Visit: No Problem List Initiated/Reviewed/Updated: Yes My Orders last 24 hours: My Active Orders 11/22/16 13:28 Accu Check [Blood Glucose Check, Bedside] [RC] WITHMEALSANDBED 11/22/16 13:29 Dextrose 50% in Water 50 ml IVPUSH ASDIRECTED PRN 11/22/16 17:00 Insulin Aspart [NovoLOG] See Protocol SUBCUT QIDACANDBED 11/22/16 Dinner ADA Diabetic [[place] [employer] Diet] [DIET] Heart Healthy Diet [DIET] Plan: S/P Rt TKA with Dr. Bennett; POD #1 -Pain management and DVT prophylax per Ortho/primary team -PT/OT -IS -VSS -Hgb 12.1 -Doing well Chronic conditions: cont home meds IDDM- SSI coverage, AC/HS accuchecks- ADA diet-- sugars good overnight and this am- 110's-120's HTN- heart healthy diet- stable pressures HLD Hypothyroid RA Stress incontinence Hx of cutaneous candidiasis- risk for postoperatively, monitor skin closely GERD- GI prophylax Other: CM/SW for assist with DC planning; plans dc home with Patient is Full Code status OK from hospitalist standpoint for discharge today <Daylin Lauren - Last Filed: 11/23/16 19:50> - Patient Data Vitals - most recent: Last Vital Signs Temp 36.7 C 11/23/16 12:03 Pulse 92 11/23/16 12:03 Resp 14 11/23/16 12:03 BP 113/60 11/23/16 12:03 Pulse Ox 93 L 11/23/16 12:03 I&O - last 24 hours: Intake & Output 11/23/16 11/23/16 11/23/16 06:59 14:59 22:59 Intake Total 700 210 600 Output Total 675 500 Balance 25 210 100 Lab Results last 24 hrs: Laboratory Results - last 24 hr 11/22/16 11/23/16 11/23/16 Range/Units 21:38 06:34 06:34 WBC 8.29 (3.98-10.04) K/mm3 RBC 3.95 L (3.98-5.22) M/mm3 Hgb 12.1 (11.2-15.7) gm/L Hct 36.5 (34.1-44.9) % MCV 92.4 (79.4-94.8) fl MCH 30.6 (25.6-32.2) pg MCHC 33.2 (32.2-35.5) g/dl RDW Std Deviation 46.3 (36.4-46.3) fL Plt Count 235 (182-369) K/mm3 MPV 9.8 (9.4-12.3) fl Neut % (Auto) 50.7 (34.0-71.1) % Lymph % (Auto) 33.4 (19.3-51.7) % Edwards % (Auto) 13.4 H (4.7-12.5) % Eos % (Auto) 2.2 (0.7-5.8) Baso % (Auto) 0.2 (0.1-1.2) % Neut # (Auto) 4.20 (1.56-6.13) K/mm3 Lymph # (Auto) 2.77 (1.18-3.74) K/mm3 Edwards # (Auto) 1.11 H (0.24-0.36) K/mm3 Eos # (Auto) 0.18 (0.04-0.36) K/mm3 Baso # (Auto) 0.02 (0.01-0.08) K/mm3 Sodium 137 (136-145) mEq/L Potassium 4.4 (3.5-5.1) mEq/L Chloride 102 (98-107) mEq/L Carbon Dioxide 26 (21-32) mEq/L Anion Gap 13.4 (5-15) BUN 14 (7-18) mg/dL Creatinine 0.9 (0.55-1.02) mg/dL Est Cr Clr Drug Dosing 50.73 mL/min Estimated GFR (MDRD) > 60 (>60) mL/min BUN/Creatinine Ratio 15.6 (14-18) Glucose 89 (74-106) mg/dL POC Glucose 118 H (70-105) mg/dL Calcium 8.5 (8.5-10.1) mg/dL Total Bilirubin 0.9 (0.2-1.0) mg/dL AST 15 (15-37) U/L ALT 27 (14-59) U/L Alkaline Phosphatase 59 (46-116) U/L Total Protein 6.2 L (6.4-8.2) g/dl Albumin 3.1 L (3.4-5.0) g/dl Globulin 3.1 gm/dL Albumin/Globulin Ratio 1.0 (1-2) 11/23/16 11/23/16 Range/Units 06:56 10:33 WBC (3.98-10.04) K/mm3 RBC (3.98-5.22) M/mm3 Hgb (11.2-15.7) gm/L Hct (34.1-44.9) % MCV (79.4-94.8) fl MCH (25.6-32.2) pg MCHC (32.2-35.5) g/dl RDW Std Deviation (36.4-46.3) fL Plt Count (182-369) K/mm3 MPV (9.4-12.3) fl Neut % (Auto) (34.0-71.1) % Lymph % (Auto) (19.3-51.7) % Edwards % (Auto) (4.7-12.5) % Eos % (Auto) (0.7-5.8) Baso % (Auto) (0.1-1.2) % Neut # (Auto) (1.56-6.13) K/mm3 Lymph # (Auto) (1.18-3.74) K/mm3 Edwards # (Auto) (0.24-0.36) K/mm3 Eos # (Auto) (0.04-0.36) K/mm3 Baso # (Auto) (0.01-0.08) K/mm3 Sodium (136-145) mEq/L Potassium (3.5-5.1) mEq/L Chloride (98-107) mEq/L Carbon Dioxide (21-32) mEq/L Anion Gap (5-15) BUN (7-18) mg/dL Creatinine (0.55-1.02) mg/dL Est Cr Clr Drug Dosing mL/min Estimated GFR (MDRD) (>60) mL/min BUN/Creatinine Ratio (14-18) Glucose (74-106) mg/dL POC Glucose 95 99 (70-105) mg/dL Calcium (8.5-10.1) mg/dL Total Bilirubin (0.2-1.0) mg/dL AST (15-37) U/L ALT (14-59) U/L Alkaline Phosphatase (46-116) U/L Total Protein (6.4-8.2) g/dl Albumin (3.4-5.0) g/dl Globulin gm/dL Albumin/Globulin Ratio (1-2) Med Orders - Current: Current Medications Aspirin (Ecotrin) 325 mg PO BID [facility] Last Admin: 11/23/16 09:49 Dose: 325 mg Bisacodyl (Dulcolax) 5 mg PO DAILY PRN PRN Reason: Constipation Calcium Carbonate/Glycine (Tums) 500 mg PO DAILY [facility] Last Admin: 11/23/16 09:48 Dose: 500 mg Cyclobenzaprine HCl (Flexeril) 10 mg PO TID PRN PRN Reason: Spasms Last Admin: 11/23/16 14:39 Dose: 10 mg Dextrose/Water (Dextrose 50% In Water) 50 ml IVPUSH ASDIRECTED PRN PRN Reason: Hypoglycemia Docusate Sodium (Colace) 100 mg PO BID [facility] Last Admin: 11/23/16 09:47 Dose: 100 mg Ezetimibe (Zetia) 10 mg PO DAILY [facility] Last Admin: 11/23/16 09:47 Dose: 10 mg Ergocalciferol (Vitamin D2) 50,000 units PO WE [facility] Famotidine (Pepcid) 20 mg PO Q12H [facility] Last Admin: 11/23/16 06:40 Dose: 20 mg Furosemide (Lasix) 20 mg PO DAILY PRN PRN Reason: swelling Insulin Aspart (Novolog) 23 unit SUBCUT 1700 [facility] Last Admin: 11/22/16 17:38 Dose: 23 units Insulin Aspart (Novolog) 0 unit SUBCUT QIDACANDBED [facility] PRN Reason: Protocol Last Admin: 11/23/16 10:36 Dose: Not Given Insulin Detemir (Levemir) 40 unit SUBCUT BID [facility] Last Admin: 11/23/16 09:49 Dose: 40 units Levothyroxine Sodium (Levothyroxine) 200 mcg PO WITHBREAKFAST [facility] Last Admin: 11/23/16 06:40 Dose: 200 mcg Levothyroxine Sodium (Synthroid) 50 mcg PO WITHBREAKFAST [facility] Last Admin: 11/23/16 06:40 Dose: 50 mcg Lisinopril (Prinivil) 40 mg PO DAILY [facility] Last Admin: 11/23/16 09:48 Dose: 40 mg Magnesium Hydroxide (Milk Of Magnesia) 30 ml PO BID PRN PRN Reason: Constipation Morphine Sulfate (Morphine) 2 mg IVPUSH Q2H PRN PRN Reason: Breakthrough Pain Multivitamins (Thera) 1 each PO WITHBREAKFAST [facility] Last Admin: 11/23/16 06:40 Dose: 1 each Ondansetron HCl (Zofran) 4 mg IVPUSH Q6H PRN PRN Reason: Nausea/Vomiting Last Admin: 11/22/16 16:52 Dose: 4 mg Oxybutynin Chloride (Oxybutynin Er) 10 mg PO DAILY [facility] Last Admin: 11/23/16 09:48 Dose: 10 mg Oxycodone/Acetaminophen (Percocet 325-5 Mg) 1 - 2 tab PO Q4H PRN PRN Reason: Pain Last Admin: 11/23/16 14:38 Dose: 1 tab Canagliflozin/Metformin Hcl [ Invokamet 150-1,000 Mg Table 0 each PO BID [facility] Last Admin: 11/23/16 09:51 Dose: 1 each Dulaglutide [ (Trulicity] 0.5 Ml) 0 each SUBCUT FR [facility] Rosuvastatin Calcium (Crestor) 10 mg PO BEDTIME [facility] Last Admin: 11/22/16 21:35 Dose: 10 mg Senna (Senna) 8.6 mg PO BID PRN PRN Reason: Constipation Simethicone (Simethicone) 80 mg PO BID PRN PRN Reason: Dyspepsia Sodium Chloride (Saline Flush) 10 ml FLUSH ASDIRECTED PRN PRN Reason: Keep Vein Open Discontinued Medications Bupivacaine HCl (Marcaine 0.25%) Confirm Administered Dose 30 ml .ROUTE .STK- MED ONE Stop: 11/22/16 06:02 Last Admin: 11/22/16 08:24 Dose: 30 ml Cefazolin Sodium (Ancef) Confirm Administered Dose 1 gm .ROUTE .STK-MED ONE Stop: 11/22/16 06:02 Last Admin: 11/22/16 08:20 Dose: 2 gm Cefazolin Sodium (Ancef) Confirm Administered Dose 1 gm .ROUTE .STK-MED ONE Stop: 11/22/16 06:02 Cefazolin Sodium (Ancef) Confirm Administered Dose 2 gm .ROUTE .STK-MED ONE Stop: 11/22/16 06:24 Morphine Sulfate 8 mg/Epinephrine HCl 0.3 mg/Cefuroxime Sodium 750 mg/Ketorolac Tromethamine 30 mg/Sodium Chloride 27.9 ml 0 mg .XX ONETIME ONE Stop: 11/22/16 07:46 Last Admin: 11/22/16 20:03 Dose: Not Given Diphenhydramine HCl (Benadryl) 25 mg IVPUSH Q6H PRN PRN Reason: pruritis Stop: 11/22/16 18:00 Diphtheria/Tetanus/Acell Pertussis (Boostrix) 0.5 ml IM .ONCE ONE Stop: 11/21/16 12:16 Last Admin: 11/23/16 15:33 Dose: 0.5 ml Ephedrine Sulfate (Ephedrine Sulfate) 5 mg IVPUSH ASDIRECTED PRN PRN Reason: Hypotension Stop: 11/22/16 18:00 Ephedrine Sulfate (Ephedrine In Ns) Confirm Administered Dose 25 mg .ROUTE .STK- MED ONE Stop: 11/22/16 08:59 Fentanyl (Sublimaze) Confirm Administered Dose 100 mcg .ROUTE .STK-MED ONE Stop: 11/22/16 06:25 Fentanyl (Sublimaze) 50 mcg IVPUSH Q5M PRN PRN Reason: Pain Stop: 11/22/16 08:46 Hydromorphone HCl (Dilaudid) 0.5 mg IVPUSH Q15M PRN PRN Reason: severe pain Stop: 11/22/16 08:46 Lactated Ringer's (Ringers, Lactated) 1,000 mls @ 125 mls/hr IV ASDIRECTED [facility] Last Admin: 11/22/16 06:45 Dose: 125 mls/hr Lidocaine HCl (Xylocaine-Mpf 1%) Confirm Administered Dose 10 mls @ as directed .ROUTE .STK-MED ONE Stop: 11/22/16 06:24 Lactated Ringer's (Ringers, Lactated) Confirm Administered Dose 1,000 mls @ as directed .ROUTE .STK-MED ONE Stop: 11/22/16 06:24 Cefazolin Sodium/Dextrose 2 gm (/ Premix) 50 mls @ 100 mls/hr IV Q8H [facility] Stop: 11/23/16 06:59 Last Admin: 11/23/16 06:39 Dose: 100 mls/hr Phenylephrine HCl 1 mg/ Sodium (Chloride) 10.1 mls @ 1 mls/sec IV TITRATE BERTA Stop: 11/22/16 16:00 Iodine (Iodine 2% Mild Tincture) Confirm Administered Dose 30 ml .ROUTE .STK- MED ONE Stop: 11/22/16 06:02 Last Admin: 11/22/16 08:14 Dose: 30 ml Ketorolac Tromethamine (Toradol) Confirm Administered Dose 30 mg .ROUTE .STK- MED ONE Stop: 11/22/16 06:24 Ketorolac Tromethamine (Toradol) 15 mg IVPUSH Q8H PRN PRN Reason: Pain Stop: 11/23/16 04:01 Last Admin: 11/23/16 03:09 Dose: 15 mg Lidocaine/Sodium Bicarbonate (Buffered Lidocaine 1% In Ns 8.4%) 0.25 ml IV ONETIME PRN PRN Reason: Prior to IV Start Last Admin: 11/22/16 06:45 Dose: 0.25 ml Midazolam HCl (Versed 1 Mg/Ml) Confirm Administered Dose 2 mg .ROUTE .STK-MED ONE Stop: 11/22/16 06:25 Morphine Sulfate (Duramorph Pf) Confirm Administered Dose 10 mg .ROUTE .STK-MED ONE Stop: 11/22/16 06:25 Naloxone HCl (Narcan) 0.1 mg IVPUSH Q5M PRN PRN Reason: Oversedation Stop: 11/22/16 10:16 Ondansetron HCl (Zofran) Confirm Administered Dose 4 mg .ROUTE .STK-MED ONE Stop: 11/22/16 06:24 Ondansetron HCl (Zofran) 4 mg IVPUSH ONETIME PRN PRN Reason: Nausea/Vomiting Stop: 11/22/16 16:00 Phenylephrine HCl (Phenylephrine In Ns 100 Mcg/Ml) Confirm Administered Dose 1 mg .ROUTE .STK-MED ONE Stop: 11/22/16 07:16 Phenylephrine HCl (Phenylephrine In Ns 100 Mcg/Ml) Confirm Administered Dose 1 mg .ROUTE .STK-MED ONE Stop: 11/22/16 08:30 Propofol (Diprivan 20 Ml) Confirm Administered Dose 400 mg .ROUTE .STK-MED ONE Stop: 11/22/16 06:25 Propofol (Diprivan 20 Ml) Confirm Administered Dose 200 mg .ROUTE .STK-MED ONE Stop: 11/22/16 08:21 Tranexamic Acid (Cyklokapron) Confirm Administered Dose 1,000 mg .ROUTE .STK- MED ONE Stop: 11/22/16 06:02 Last Admin: 11/22/16 08:35 Dose: 1,000 mg Consult PN Assessment/Plan Procedures: Procedures ASSAY OF FERRITIN (07/05/14) ASSAY OF FREE THYROXINE (10/23/14) ASSAY OF PREALBUMIN (07/05/14) ASSAY OF SERUM ALBUMIN (07/05/14) ASSAY THYROID STIM HORMONE (10/23/14) CHEST X-RAY 2VW FRONTAL&LATL (07/05/14) COMP SCREEN MAMMOGRAM ADD-ON (06/15/16) COMPLETE CBC W/AUTO DIFF WBC (07/05/14) COMPREHEN METABOLIC PANEL (10/23/14) CT ABD & PELV W/CONTRAST (07/22/16) CT THORAX W/DYE (07/22/16) GLYCOSYLATED HEMOGLOBIN TEST (07/05/14) LIPID PANEL (03/25/14) METABOLIC PANEL TOTAL CA (07/05/14) MR-STAPH DNA AMP PROBE (07/14/16) PROTHROMBIN TIME (07/05/14) ROUTINE VENIPUNCTURE (10/23/14) THROMBOPLASTIN TIME PARTIAL (07/05/14) TISSUE EXAM BY PATHOLOGIST (06/30/16) TRANSVAGINAL US NON-OB (05/09/15) VITAMIN D 25 HYDROXY (07/05/14) Plan: Agree with plan of care
[2016-11-23] MEDS: ceFAZolin 2 GM in Premix Bag 1 BAG IV SCH (06:39)
[2016-11-23] MEDS: Famotidine 20 MG Tab PO SCH (06:40)
[2016-11-23] MEDS: Cyclobenzaprine 10 MG Tab PO PRN ×2 (06:40→14:39)
[2016-11-23] MEDS ORDERED: Multivitamins,Therapeutic Tab PO SCH (07:00)
[2016-11-23] MEDS ORDERED: Levothyroxine 50 MCG Tab PO SCH (07:00)
[2016-11-23] MEDS: Insulin Aspart 100 Units/ML 3 ML Pen SUBCUT SCH ×2 (07:31→10:36)
--- NOTE | 2016-11-23 08:30 | PCM48HPAN ---
Post Anesthesia Note - EVALUATION WITHIN 48HRS OF ANESTHETIC Vital Signs in Normal Range: Yes Patient Participated in Evaluation: Yes Respiratory Function Stable: Yes Airway Patent: Yes Cardiovascular Function Stable: Yes Hydration Status Stable: Yes Pain Control Satisfactory: Yes Nausea and Vomiting Control Satisfactory: Yes Mental Status Recovered: Yes - COMMENTS/OBSERVATIONS Free Text/Narrative:: Patient up ambulating to the bathroom. Patient states pain control is adequate, and had only one emesis last night. Patient denies any c/o at this time.
[2016-11-23] MEDS ORDERED: Furosemide 20 MG Tab PO PRN (09:00)
[2016-11-23] MEDS ORDERED: Ezetimibe 10 MG Tab PO SCH (09:00)
[2016-11-23] MEDS ORDERED: Aspirin 325 MG Tab.EC PO SCH (09:00)
[2016-11-23] MEDS ORDERED: Calcium Carbonate 500 MG Tab.Chew PO SCH (09:00)
[2016-11-23] MEDS ORDERED: Oxybutynin 5 MG Tab.ER PO SCH (09:00)
[2016-11-23] MEDS ORDERED: Lisinopril 20 MG Tab PO SCH (09:00)
[2016-11-23] MEDS: Docusate Sodium 100 MG Cap PO SCH (09:47)
[2016-11-23] MEDS: Insulin Detemir 100 Units/ML 3 ML Pen SUBCUT SCH (09:49)
[2016-11-23] MEDS: CANAGLIFLOZIN PO SCH (09:51)
[2016-11-23] MEDS: METFORMIN HCL PO SCH (09:51)
[2016-11-23 12:04] VITALS: BP 113/60
[2016-11-24] MEDS ORDERED: Ergocalciferol (Vitamin D2) 50,000 Unit Cap PO SCH (09:00)
[2016-11-26] MEDS ORDERED: Dulaglutide [Trulicity] 0.5 ML SUBCUT SCH (08:19)
--- NOTE | 2016-12-02 18:04 | PCM.SURGPN ---
- General Info Date of Service: 11/23/16 POD#: 1 Functional Status: Reports: pain controlled, tolerating diet, ambulating, urinating. Denies: new symptoms - Review of Systems Musculoskeletal: Reports: other (The pt progressed well with therapies today and is prepared for discharge to home.) - Patient Data Vitals - most recent: Last Vital Signs Temp 98.1 F 11/23/16 12:03 Pulse 92 11/23/16 12:03 Resp 14 11/23/16 12:03 BP 113/60 11/23/16 12:03 Pulse Ox 93 L 11/23/16 12:03 Weight - most recent: 222 lb 9.6 oz Med Orders - Current: Current Medications Discontinued Medications Aspirin (Ecotrin) 325 mg PO BID [facility] Last Admin: 11/23/16 09:49 Dose: 325 mg Bisacodyl (Dulcolax) 5 mg PO DAILY PRN PRN Reason: Constipation Bupivacaine HCl (Marcaine 0.25%) Confirm Administered Dose 30 ml .ROUTE .STK- MED ONE Stop: 11/22/16 06:02 Last Admin: 11/22/16 08:24 Dose: 30 ml Calcium Carbonate/Glycine (Tums) 500 mg PO DAILY [facility] Last Admin: 11/23/16 09:48 Dose: 500 mg Cefazolin Sodium (Ancef) Confirm Administered Dose 1 gm .ROUTE .STK-MED ONE Stop: 11/22/16 06:02 Last Admin: 11/22/16 08:20 Dose: 2 gm Cefazolin Sodium (Ancef) Confirm Administered Dose 1 gm .ROUTE .STK-MED ONE Stop: 11/22/16 06:02 Cefazolin Sodium (Ancef) Confirm Administered Dose 2 gm .ROUTE .STK-MED ONE Stop: 11/22/16 06:24 Morphine Sulfate 8 mg/Epinephrine HCl 0.3 mg/Cefuroxime Sodium 750 mg/Ketorolac Tromethamine 30 mg/Sodium Chloride 27.9 ml 0 mg .XX ONETIME ONE Stop: 11/22/16 07:46 Last Admin: 11/22/16 20:03 Dose: Not Given Cyclobenzaprine HCl (Flexeril) 10 mg PO TID PRN PRN Reason: Spasms Last Admin: 11/23/16 14:39 Dose: 10 mg Dextrose/Water (Dextrose 50% In Water) 50 ml IVPUSH ASDIRECTED PRN PRN Reason: Hypoglycemia Diphenhydramine HCl (Benadryl) 25 mg IVPUSH Q6H PRN PRN Reason: pruritis Stop: 11/22/16 18:00 Diphtheria/Tetanus/Acell Pertussis (Boostrix) 0.5 ml IM .ONCE ONE Stop: 11/21/16 12:16 Last Admin: 11/23/16 15:33 Dose: 0.5 ml Docusate Sodium (Colace) 100 mg PO BID [facility] Last Admin: 11/23/16 09:47 Dose: 100 mg Ezetimibe (Zetia) 10 mg PO DAILY [facility] Last Admin: 11/23/16 09:47 Dose: 10 mg Ephedrine Sulfate (Ephedrine Sulfate) 5 mg IVPUSH ASDIRECTED PRN PRN Reason: Hypotension Stop: 11/22/16 18:00 Ephedrine Sulfate (Ephedrine In Ns) Confirm Administered Dose 25 mg .ROUTE .STK- MED ONE Stop: 11/22/16 08:59 Ergocalciferol (Vitamin D2) 50,000 units PO WE [facility] Famotidine (Pepcid) 20 mg PO Q12H [facility] Last Admin: 11/23/16 06:40 Dose: 20 mg Fentanyl (Sublimaze) Confirm Administered Dose 100 mcg .ROUTE .STK-MED ONE Stop: 11/22/16 06:25 Fentanyl (Sublimaze) 50 mcg IVPUSH Q5M PRN PRN Reason: Pain Stop: 11/22/16 08:46 Furosemide (Lasix) 20 mg PO DAILY PRN PRN Reason: swelling Hydromorphone HCl (Dilaudid) 0.5 mg IVPUSH Q15M PRN PRN Reason: severe pain Stop: 11/22/16 08:46 Lactated Ringer's (Ringers, Lactated) 1,000 mls @ 125 mls/hr IV ASDIRECTED [facility] Last Admin: 11/22/16 06:45 Dose: 125 mls/hr Lidocaine HCl (Xylocaine-Mpf 1%) Confirm Administered Dose 10 mls @ as directed .ROUTE .STK-MED ONE Stop: 11/22/16 06:24 Lactated Ringer's (Ringers, Lactated) Confirm Administered Dose 1,000 mls @ as directed .ROUTE .STK-MED ONE Stop: 11/22/16 06:24 Cefazolin Sodium/Dextrose 2 gm (/ Premix) 50 mls @ 100 mls/hr IV Q8H [facility] Stop: 11/23/16 06:59 Last Admin: 11/23/16 06:39 Dose: 100 mls/hr Phenylephrine HCl 1 mg/ Sodium (Chloride) 10.1 mls @ 1 mls/sec IV TITRATE [facility] Stop: 11/22/16 16:00 Insulin Aspart (Novolog) 23 unit SUBCUT 1700 [facility] Last Admin: 11/22/16 17:38 Dose: 23 units Insulin Aspart (Novolog) 0 unit SUBCUT QIDACANDBED [facility] PRN Reason: Protocol Last Admin: 11/23/16 10:36 Dose: Not Given Insulin Detemir (Levemir) 40 unit SUBCUT BID [facility] Last Admin: 11/23/16 09:49 Dose: 40 units Iodine (Iodine 2% Mild Tincture) Confirm Administered Dose 30 ml .ROUTE .STK- MED ONE Stop: 11/22/16 06:02 Last Admin: 11/22/16 08:14 Dose: 30 ml Ketorolac Tromethamine (Toradol) Confirm Administered Dose 30 mg .ROUTE .STK- MED ONE Stop: 11/22/16 06:24 Ketorolac Tromethamine (Toradol) 15 mg IVPUSH Q8H PRN PRN Reason: Pain Stop: 11/23/16 04:01 Last Admin: 11/23/16 03:09 Dose: 15 mg Levothyroxine Sodium (Levothyroxine) 200 mcg PO WITHBREAKFAST [facility] Last Admin: 11/23/16 06:40 Dose: 200 mcg Levothyroxine Sodium (Synthroid) 50 mcg PO WITHBREAKFAST [facility] Last Admin: 11/23/16 06:40 Dose: 50 mcg Lidocaine/Sodium Bicarbonate (Buffered Lidocaine 1% In Ns 8.4%) 0.25 ml IV ONETIME PRN PRN Reason: Prior to IV Start Last Admin: 11/22/16 06:45 Dose: 0.25 ml Lisinopril (Prinivil) 40 mg PO DAILY [facility] Last Admin: 11/23/16 09:48 Dose: 40 mg Magnesium Hydroxide (Milk Of Magnesia) 30 ml PO BID PRN PRN Reason: Constipation Midazolam HCl (Versed 1 Mg/Ml) Confirm Administered Dose 2 mg .ROUTE .STK-MED ONE Stop: 11/22/16 06:25 Morphine Sulfate (Duramorph Pf) Confirm Administered Dose 10 mg .ROUTE .STK-MED ONE Stop: 11/22/16 06:25 Morphine Sulfate (Morphine) 2 mg IVPUSH Q2H PRN PRN Reason: Breakthrough Pain Multivitamins (Thera) 1 each PO WITHBREAKFAST [facility] Last Admin: 11/23/16 06:40 Dose: 1 each Naloxone HCl (Narcan) 0.1 mg IVPUSH Q5M PRN PRN Reason: Oversedation Stop: 11/22/16 10:16 Ondansetron HCl (Zofran) Confirm Administered Dose 4 mg .ROUTE .STK-MED ONE Stop: 11/22/16 06:24 Ondansetron HCl (Zofran) 4 mg IVPUSH Q6H PRN PRN Reason: Nausea/Vomiting Last Admin: 11/22/16 16:52 Dose: 4 mg Ondansetron HCl (Zofran) 4 mg IVPUSH ONETIME PRN PRN Reason: Nausea/Vomiting Stop: 11/22/16 16:00 Oxybutynin Chloride (Oxybutynin Er) 10 mg PO DAILY [facility] Last Admin: 11/23/16 09:48 Dose: 10 mg Oxycodone/Acetaminophen (Percocet 325-5 Mg) 1 - 2 tab PO Q4H PRN PRN Reason: Pain Last Admin: 11/23/16 14:38 Dose: 1 tab Canagliflozin/Metformin Hcl [ Invokamet 150-1,000 Mg Table 0 each PO BID [facility] Last Admin: 11/23/16 09:51 Dose: 1 each Dulaglutide [ (Trulicity] 0.5 Ml) 0 each SUBCUT FR [facility] Phenylephrine HCl (Phenylephrine In Ns 100 Mcg/Ml) Confirm Administered Dose 1 mg .ROUTE .STK-MED ONE Stop: 11/22/16 07:16 Phenylephrine HCl (Phenylephrine In Ns 100 Mcg/Ml) Confirm Administered Dose 1 mg .ROUTE .STK-MED ONE Stop: 11/22/16 08:30 Propofol (Diprivan 20 Ml) Confirm Administered Dose 400 mg .ROUTE .STK-MED ONE Stop: 11/22/16 06:25 Propofol (Diprivan 20 Ml) Confirm Administered Dose 200 mg .ROUTE .STK-MED ONE Stop: 11/22/16 08:21 Rosuvastatin Calcium (Crestor) 10 mg PO BEDTIME [facility] Last Admin: 11/22/16 21:35 Dose: 10 mg Senna (Senna) 8.6 mg PO BID PRN PRN Reason: Constipation Simethicone (Simethicone) 80 mg PO BID PRN PRN Reason: Dyspepsia Sodium Chloride (Saline Flush) 10 ml FLUSH ASDIRECTED PRN PRN Reason: Keep Vein Open Tranexamic Acid (Cyklokapron) Confirm Administered Dose 1,000 mg .ROUTE .STK- MED ONE Stop: 11/22/16 06:02 Last Admin: 11/22/16 08:35 Dose: 1,000 mg - Exam Wound/Incisions: dressing dry and intact General: alert, cooperative, no acute distress Lungs: Normal respiratory effort Extremities: normal pulses, no calf tenderness, other (NVS intact. Mustapha's negative.) - Problem List Review Problem List Initiated/Reviewed/Updated: Yes - Assessment Assessment (Free Text/Narrative):: POD#1 - right TKA - Plan Plan (Free Text/Narrative):: 1. The pt met in-patient therapy goals. 2. Discharge to home today. 3. Further orders per Hospitalist service. 4. Close monitoring of blood sugars. 5. 325mg ASA BID, frequent mobility, TEDs. 6. Hgb 12.[address] Bennett examined the pt today.
--- NOTE | 2016-12-02 18:09 | PCM.DCSUM1 ---
Discharge Summary - Hospital Course Brief History: Malena is a 56 yo female who underwent right TKA with Dr. Bennett on 11-22-16. The procedure was completed under spinal anesthesia with MAC. The pt tolerated the procedure well and was admitted to the Medical-Surgical Unit. Medical management was provided by the Hospitalist service. The pt's Hospital course was uneventful. The pt has diabetes and blood sugars were closely monitored. The pt's Hgb on POD#1 was 12.1. On POD#1, ASA 325mg BID was initiated for VTE prophylaxis. A Mepilex dressing was placed at the incision site at the time of surgery and remained clean and dry. The pt participated in P.T. and O.T. and progressed well. The pt was allowed to WBAT. On POD#1, the pt was deemed appropriate to discharge to home with family. She will attend out -patiet P.T. and will closely monitor blood sugars. - Discharge Data Discharge Date: 11/23/16 Discharge Disposition: Home, Self-Care 01 Condition: Good - Patient Summary/Data Operative Procedure(s) Performed: right total knee arthroplasty Consults: Consultations 11/22/16 06:30 Consult to Case Management [CONS] Routine Consult to Physician [CONS] Routine OT Evaluation and Treatment [CONS] Routine 11/22/16 06:35 PT Evaluation and Treatment [CONS] Routine 11/22/16 13:03 Consult to Underwear Welter [CONS] Routine - Patient Instructions Diet: Usual Diet as Tolerated, Diabetic Diet Activity: Apply Ice, As Tolerated, Elevate Extremity, Full Weight Bearing Driving: Do Not Drive Showering/Bathing: May Shower Wound/Incision Care: Keep Operative Site/Wound Site Clean and Dry, Do NOT Change Dressing Notify Provider of: Fever, Increased Pain, Swelling and Redness, Drainage, Nausea and/or Vomiting Other/Special Instructions: Please get up and moving around every hour while awake. This helps to prevent blood clots. Please take 325mg aspirin twice daily - this also helps to prevent blood clots. The medication is being used for blood clot prevention and not for pain control, so please use the medication twice daily as directed. Please wear the MARCELO hose during the day and remove them at night. Please schedule for P.T. Complete the P.T. exercises and stretches that were instructed in the Hospital. Please use the pain medication and muscle relaxant as needed. The medication may cause drowsiness and/or constipation. You could use a stool softener like docusate sodium or Colace 100mg twice daily and/or a laxative like polyethylene glycol or Miralax daily for constipation. Contact your primary care provider for further instructions if you are constipated. Please schedule an appointment with your primary care provider for 'routine post-op care'. Use the incentive spirometer often. Please place ice to the knee often. Please elevate the limb to decrease swelling. Keep the Mepilex dressing in place until follow-up. Please call [phone] with questions or concerns. - Discharge Plan Prescriptions/Med Rec: Acetaminophen/oxyCODONE [Percocet 325-5 MG] 1 - 2 tab PO Q4H PRN #60 tablet PRN Reason: Pain Aspirin [Ecotrin] 325 mg PO BID #84 tab.ec Cyclobenzaprine [Flexeril] 10 mg PO TID PRN #40 tablet PRN Reason: muscle spasms Home Medications: Home Meds Calcium Carbonate [Calcium] 500 mg PO DAILY 11/19/16 [History] Canagliflozin/Metformin HCl [Invokamet 150-1,000 mg Tablet] 1 tab PO BID [History] Dulaglutide [Trulicity] 0.5 ml SQ FR 11/19/16 [History] Ergocalciferol (Vitamin D2) [Vitamin D2] 50,000 units PO WE 11/19/16 [History] Ezetimibe [Zetia] 10 mg PO DAILY 11/19/16 [History] Fish Oil/Borage/Flax/Om3,6,9#1 [[place] 3-6-9 Complex Softgel] 1 cap PO DAILY [History] Furosemide [Lasix] 20 mg PO DAILY PRN 11/19/16 [History] Insulin Aspart [NovoLOG] 23 units SQ 1700 11/19/16 [History] Insulin Glarg,Human.Rec.Analog [LantUS Solostar] 40 units SQ BID 11/19/16 [ History] Levothyroxine 200 mcg PO DAILY 11/19/16 [History] Levothyroxine Sodium 50 mcg PO DAILY 11/19/16 [History] Lisinopril [Prinivil] 40 mg PO DAILY 11/19/16 [History] Multivitamin [Daily Adriana] 1 tab PO DAILY 11/19/16 [History] Omeprazole Magnesium [Prilosec Otc] 40 mg PO DAILY 11/19/16 [History] Oxybutynin Chloride [Oxybutynin Chloride ER] 10 mg PO DAILY 11/19/16 [History] Rosuvastatin [Crestor] 10 mg PO BEDTIME 11/19/16 [History] Simethicone 125 mg PO BID PRN 11/19/16 [History] Acetaminophen/oxyCODONE [Percocet 325-5 MG] 1 - 2 tab PO Q4H PRN #60 tablet [Rx] Aspirin [Ecotrin] 325 mg PO BID #84 tab.ec 11/23/16 [Rx] Cyclobenzaprine [Flexeril] 10 mg PO TID PRN #40 tablet 11/23/16 [Rx] Patient Handouts: Total Knee Replacement, Care After, [id number], Total Knee Replacement, [id number], Knee Rehabilitation Guidelines Following Surgery Referrals: Sanaz English NP [Primary Care Provider] - 12/01/16 10:00 am (Please follow-up with HECTOR English on December 01 at 1000am for a post-op follow-up. ) Christen Gutierrez PA-C [Physician Nuclear Equipment Research Engineer] - 11/30/16 10:15 am (Please follow- up with EMMANUEL Gutierrez on November 30 at 1015am. ) - Patient Data Vitals - Most Recent: Last Vital Signs Temp 98.1 F 11/23/16 12:03 Pulse 92 11/23/16 12:03 Resp 14 11/23/16 12:03 BP 113/60 11/23/16 12:03 Pulse Ox 93 L 11/23/16 12:03 Weight - Most Recent: 222 lb 9.6 oz Med Orders - Current: Current Medications Discontinued Medications Aspirin (Ecotrin) 325 mg PO BID [facility] Last Admin: 11/23/16 09:49 Dose: 325 mg Bisacodyl (Dulcolax) 5 mg PO DAILY PRN PRN Reason: Constipation Bupivacaine HCl (Marcaine 0.25%) Confirm Administered Dose 30 ml .ROUTE .STK- MED ONE Stop: 11/22/16 06:02 Last Admin: 11/22/16 08:24 Dose: 30 ml Calcium Carbonate/Glycine (Tums) 500 mg PO DAILY [facility] Last Admin: 11/23/16 09:48 Dose: 500 mg Cefazolin Sodium (Ancef) Confirm Administered Dose 1 gm .ROUTE .STK-MED ONE Stop: 11/22/16 06:02 Last Admin: 11/22/16 08:20 Dose: 2 gm Cefazolin Sodium (Ancef) Confirm Administered Dose 1 gm .ROUTE .STK-MED ONE Stop: 11/22/16 06:02 Cefazolin Sodium (Ancef) Confirm Administered Dose 2 gm .ROUTE .STK-MED ONE Stop: 11/22/16 06:24 Morphine Sulfate 8 mg/Epinephrine HCl 0.3 mg/Cefuroxime Sodium 750 mg/Ketorolac Tromethamine 30 mg/Sodium Chloride 27.9 ml 0 mg .XX ONETIME ONE Stop: 11/22/16 07:46 Last Admin: 11/22/16 20:03 Dose: Not Given Cyclobenzaprine HCl (Flexeril) 10 mg PO TID PRN PRN Reason: Spasms Last Admin: 11/23/16 14:39 Dose: 10 mg Dextrose/Water (Dextrose 50% In Water) 50 ml IVPUSH ASDIRECTED PRN PRN Reason: Hypoglycemia Diphenhydramine HCl (Benadryl) 25 mg IVPUSH Q6H PRN PRN Reason: pruritis Stop: 11/22/16 18:00 Diphtheria/Tetanus/Acell Pertussis (Boostrix) 0.5 ml IM .ONCE ONE Stop: 11/21/16 12:16 Last Admin: 11/23/16 15:33 Dose: 0.5 ml Docusate Sodium (Colace) 100 mg PO BID [facility] Last Admin: 11/23/16 09:47 Dose: 100 mg Ezetimibe (Zetia) 10 mg PO DAILY [facility] Last Admin: 11/23/16 09:47 Dose: 10 mg Ephedrine Sulfate (Ephedrine Sulfate) 5 mg IVPUSH ASDIRECTED PRN PRN Reason: Hypotension Stop: 11/22/16 18:00 Ephedrine Sulfate (Ephedrine In Ns) Confirm Administered Dose 25 mg .ROUTE .STK- MED ONE Stop: 11/22/16 08:59 Ergocalciferol (Vitamin D2) 50,000 units PO WE [facility] Famotidine (Pepcid) 20 mg PO Q12H [facility] Last Admin: 11/23/16 06:40 Dose: 20 mg Fentanyl (Sublimaze) Confirm Administered Dose 100 mcg .ROUTE .STK-MED ONE Stop: 11/22/16 06:25 Fentanyl (Sublimaze) 50 mcg IVPUSH Q5M PRN PRN Reason: Pain Stop: 11/22/16 08:46 Furosemide (Lasix) 20 mg PO DAILY PRN PRN Reason: swelling Hydromorphone HCl (Dilaudid) 0.5 mg IVPUSH Q15M PRN PRN Reason: severe pain Stop: 11/22/16 08:46 Lactated Ringer's (Ringers, Lactated) 1,000 mls @ 125 mls/hr IV ASDIRECTED [facility] Last Admin: 11/22/16 06:45 Dose: 125 mls/hr Lidocaine HCl (Xylocaine-Mpf 1%) Confirm Administered Dose 10 mls @ as directed .ROUTE .STK-MED ONE Stop: 11/22/16 06:24 Lactated Ringer's (Ringers, Lactated) Confirm Administered Dose 1,000 mls @ as directed .ROUTE .STK-MED ONE Stop: 11/22/16 06:24 Cefazolin Sodium/Dextrose 2 gm (/ Premix) 50 mls @ 100 mls/hr IV Q8H [facility] Stop: 11/23/16 06:59 Last Admin: 11/23/16 06:39 Dose: 100 mls/hr Phenylephrine HCl 1 mg/ Sodium (Chloride) 10.1 mls @ 1 mls/sec IV TITRATE [facility] Stop: 11/22/16 16:00 Insulin Aspart (Novolog) 23 unit SUBCUT 1700 [facility] Last Admin: 11/22/16 17:38 Dose: 23 units Insulin Aspart (Novolog) 0 unit SUBCUT QIDACANDBED [facility] PRN Reason: Protocol Last Admin: 11/23/16 10:36 Dose: Not Given Insulin Detemir (Levemir) 40 unit SUBCUT BID [facility] Last Admin: 11/23/16 09:49 Dose: 40 units Iodine (Iodine 2% Mild Tincture) Confirm Administered Dose 30 ml .ROUTE .STK- MED ONE Stop: 11/22/16 06:02 Last Admin: 11/22/16 08:14 Dose: 30 ml Ketorolac Tromethamine (Toradol) Confirm Administered Dose 30 mg .ROUTE .STK- MED ONE Stop: 11/22/16 06:24 Ketorolac Tromethamine (Toradol) 15 mg IVPUSH Q8H PRN PRN Reason: Pain Stop: 11/23/16 04:01 Last Admin: 11/23/16 03:09 Dose: 15 mg Levothyroxine Sodium (Levothyroxine) 200 mcg PO WITHBREAKFAST [facility] Last Admin: 11/23/16 06:40 Dose: 200 mcg Levothyroxine Sodium (Synthroid) 50 mcg PO WITHBREAKFAST [facility] Last Admin: 11/23/16 06:40 Dose: 50 mcg Lidocaine/Sodium Bicarbonate (Buffered Lidocaine 1% In Ns 8.4%) 0.25 ml IV ONETIME PRN PRN Reason: Prior to IV Start Last Admin: 11/22/16 06:45 Dose: 0.25 ml Lisinopril (Prinivil) 40 mg PO DAILY [facility] Last Admin: 11/23/16 09:48 Dose: 40 mg Magnesium Hydroxide (Milk Of Magnesia) 30 ml PO BID PRN PRN Reason: Constipation Midazolam HCl (Versed 1 Mg/Ml) Confirm Administered Dose 2 mg .ROUTE .STK-MED ONE Stop: 11/22/16 06:25 Morphine Sulfate (Duramorph Pf) Confirm Administered Dose 10 mg .ROUTE .STK-MED ONE Stop: 11/22/16 06:25 Morphine Sulfate (Morphine) 2 mg IVPUSH Q2H PRN PRN Reason: Breakthrough Pain Multivitamins (Thera) 1 each PO WITHBREAKFAST [facility] Last Admin: 11/23/16 06:40 Dose: 1 each Naloxone HCl (Narcan) 0.1 mg IVPUSH Q5M PRN PRN Reason: Oversedation Stop: 11/22/16 10:16 Ondansetron HCl (Zofran) Confirm Administered Dose 4 mg .ROUTE .STK-MED ONE Stop: 11/22/16 06:24 Ondansetron HCl (Zofran) 4 mg IVPUSH Q6H PRN PRN Reason: Nausea/Vomiting Last Admin: 11/22/16 16:52 Dose: 4 mg Ondansetron HCl (Zofran) 4 mg IVPUSH ONETIME PRN PRN Reason: Nausea/Vomiting Stop: 11/22/16 16:00 Oxybutynin Chloride (Oxybutynin Er) 10 mg PO DAILY [facility] Last Admin: 11/23/16 09:48 Dose: 10 mg Oxycodone/Acetaminophen (Percocet 325-5 Mg) 1 - 2 tab PO Q4H PRN PRN Reason: Pain Last Admin: 11/23/16 14:38 Dose: 1 tab Canagliflozin/Metformin Hcl [ Invokamet 150-1,000 Mg Table 0 each PO BID [facility] Last Admin: 11/23/16 09:51 Dose: 1 each Dulaglutide [ (Trulicity] 0.5 Ml) 0 each SUBCUT FR [facility] Phenylephrine HCl (Phenylephrine In Ns 100 Mcg/Ml) Confirm Administered Dose 1 mg .ROUTE .STK-MED ONE Stop: 11/22/16 07:16 Phenylephrine HCl (Phenylephrine In Ns 100 Mcg/Ml) Confirm Administered Dose 1 mg .ROUTE .STK-MED ONE Stop: 11/22/16 08:30 Propofol (Diprivan 20 Ml) Confirm Administered Dose 400 mg .ROUTE .STK-MED ONE Stop: 11/22/16 06:25 Propofol (Diprivan 20 Ml) Confirm Administered Dose 200 mg .ROUTE .STK-MED ONE Stop: 11/22/16 08:21 Rosuvastatin Calcium (Crestor) 10 mg PO BEDTIME [facility] Last Admin: 11/22/16 21:35 Dose: 10 mg Senna (Senna) 8.6 mg PO BID PRN PRN Reason: Constipation Simethicone (Simethicone) 80 mg PO BID PRN PRN Reason: Dyspepsia Sodium Chloride (Saline Flush) 10 ml FLUSH ASDIRECTED PRN PRN Reason: Keep Vein Open Tranexamic Acid (Cyklokapron) Confirm Administered Dose 1,000 mg .ROUTE .STK- MED ONE Stop: 11/22/16 06:02 Last Admin: 11/22/16 08:35 Dose: 1,000 mg *Q Meaningful Use (DIS) - VTE *Q VTE Criteria *Q: - Stroke *Q Stroke Criteria *Q: - AMI *Q AMI Criteria *Q:
== END 2016-11-23 15:57 | disposition home or self-care (01) | DRG 302 ==
LOC: JD.OB 06:02 → JD.MS 06:31
PROVIDERS: ADMIT Orthopaedic Surgery; ATTEND Orthopaedic Surgery
PROC: 0SRC0J9 Replacement of Right Knee Joint with Synthetic Substitute, Cemented, Open Approach (ICD-10-PCS; principal; 2016-11-22)
DX: M17.11 Unilateral primary osteoarthritis, right knee (principal); I10 Essential (primary) hypertension; E78.00 Pure hypercholesterolemia, unspecified; K21.9 Gastro-esophageal reflux disease without esophagitis; M06.9 Rheumatoid arthritis, unspecified; E11.9 Type 2 diabetes mellitus without complications; Z79.4 Long term (current) use of insulin; E03.9 Hypothyroidism, unspecified; E55.9 Vitamin D deficiency, unspecified; R32 Unspecified urinary incontinence; Z87.891 Personal history of nicotine dependence; E66.01 Morbid (severe) obesity due to excess calories; E78.5 Hyperlipidemia, unspecified; Z79.82 Long term (current) use of aspirin; Z79.899 Other long term (current) drug therapy
CPT/HCPCS: 01402; 36415; 73560-26-RT; 73560-RT; 80053; 82962; 85025; 87641; 90715; 94762; 97110-GP; 97116-GP; 97161-GP; 97165-GO; 97535-GO; A9270-GY; C1713; C1776; J0171; J0690; J0697; J1815-GY; J1885; J2250; J2270; J2405; J2704; J3010; J3490; J7050; J7120

== ENCOUNTER → 2017-09-14 | Day surgery (SDC) | payer BC ==
[~2017-09-14] MED LIST changes: +Bupivacaine 0.25% 30 ML SDV ONE; -Diphtheria,Pertussis(Acell),Tetanus Vaccine 0.5 ML SDV inactive IM ONE; +HYDROmorphone 1 MG/ML Syringe IVPUSH PRN; +HYDROmorphone 1 MG/ML Syringe ONE; +Ketorolac 30 MG/ML SDV ONE; +Lactated Ringers 1,000 ML ONE; +Lidocaine 1% 4 ML ONE; +Lidocaine 1%/Sod Bicarbonate in NS 8.4% 1 ML Syringe IDERM PRN; -Lidocaine 1%/Sod Bicarbonate in NS 8.4% 1 ML Syringe IV PRN; +Meperidine PF 50 MG/ML Syringe IVPUSH PRN; +Midazolam 1 MG/ML 2 ML SDV ONE; +Neostigmine Methylsulfate 1 MG/ML 5 ML Syringe ONE; +Ondansetron 4 MG/2 ML SDV IVPUSH PRN; +Ondansetron 4 MG/2 ML SDV ONE; +Propofol 200 MG/20 ML SDV ONE; +Rocuronium 50 MG/5 ML Vial ONE; +fentaNYL 100 MCG/2 ML SDV IVPUSH PRN; +fentaNYL 250 MCG/5 ML SDV ONE
--- NOTE | 2017-09-14 07:29 | PCM.PREANE ---
Preanesthetic Assessment - Anesthesia/Transfusion/Family Hx Anesthesia History: Prior Anesthesia Without Reaction Family History of Anesthesia Reaction: No Transfusion History: No Prior Transfusion(s) Intubation History: Unknown - Review of Systems General: No Symptoms Pulmonary: No Symptoms Cardiovascular: No Symptoms Gastrointestinal: No Symptoms Neurological: No Symptoms Other: Reports: Easy Bruising, Diabetes, Thyroid Problems - Physical Assessment NPO Status Date: 09/13/17 NPO Status Time: 23:30 Pulse: 82 O2 Sat by Pulse Oximetry: 95 Respiratory Rate: 16 Blood Pressure: 148/65 Temperature: 98.8 F Height: 5 ft Weight: 104.099 kg ASA Class: 2 Mental Status: Alert & Oriented x3 Airway Class: Mallampati = 2 Dentition: Reports: Normal Dentition Thyro-Mental Finger Breadths: 3 Mouth Opening Finger Breadths: 2 ROM/Head Extension: Full Lungs: Clear to Auscultation, Normal Respiratory Effort Cardiovascular: Regular Rate, Regular Rhythm - Lab Values: am cbc and chemistry labs reviewed prior to OR - Allergies Allergies/Adverse Reactions: Allergies Allergy/AdvReac Type Severity Reaction Status Date / Time dapagliflozin [From [facility]] Allergy Rash Verified 09/13/17 11:23 hydrochlorothiazide AdvReac vision Verified 09/13/17 11:23 changes - Blood Blood Available: No - Acknowledgements Anesthesia Type Planned: General Anesthesia Pt an Appropriate Candidate for the Planned Anesthesia: Yes Alternatives and Risks of Anesthesia Discussed w Pt/Guardian: Yes Pt/Guardian Understands and Agrees with Anesthesia Plan: Yes PreAnesthesia Questionnaire HEENT History: Reports: Impaired Vision, Other (See Below) Other HEENT History: wears glasses Cardiovascular History: Reports: High Cholesterol, Hypertension, Other (See Below) Other Cardiovascular History: irregular heart beat, palpitations Respiratory History: Reports: None Gastrointestinal History: Reports: GERD Genitourinary History: Reports: Other (See Below) Other Genitourinary History: stress incontinence, urinary disorder [employer] WORKER History: Reports: Other (See Below) Other OB/BYN History: vaginal hemorrhage, vaginitis Musculoskeletal History: Reports: Osteoarthritis, RA Other Musculoskeletal History: bilateral carpal tunnel syndrome Neurological History: Reports: None Psychiatric History: Reports: None Endocrine/Metabolic History: Reports: Diabetes, Type II, Hypothyroidism, Obesity /BMI 30+, Vitamin D Deficiency Hematologic History: Reports: Other (See Below) Other Hematologic History: leukocystosis Immunologic History: Reports: None Oncologic (Cancer) History: Reports: Uterine, Other (See Below) Other Oncologic History: endometrial Dermatologic History: Reports: Other (See Below) Other Dermatologic History: groin furnucle, cutaneous candidasis - Infectious Disease History Infectious Disease History: Reports: None - Past Surgical History Head Surgeries/Procedures: Reports: None HEENT Surgical History: Reports: None Cardiovascular Surgical History: Reports: None Respiratory Surgical History: Reports: None GI Surgical History: Reports: Colonoscopy, EGD, Hernia Repair/Other, Other (See Below) Other GI Surgeries/Procedures: sigmoidoscopy Female Surgical History: Reports: Hysterectomy, Tubal Ligation Male Surgical History: Reports: None Endocrine Surgical History: Reports: None Neurological Surgical History: Reports: None Musculoskeletal Surgical History: Reports: Arthroscopic Knee, Knee Replacement, Shoulder Surgery, Other (See Below) Other Musculoskeletal Surgeries/Procedures:: right total knee replacement Oncologic Surgical History: Reports: None Dermatological Surgical History: Reports: None - SUBSTANCE USE Smoking Status *Q: Former Smoker (quit 2003) Tobacco Use Within Last Twelve Months: No Second Hand Smoke Exposure: No Days Per Week of Alcohol Use: 0 Recreational Drug Use History: No - HOME MEDS Home Medications: Home Meds Dulaglutide [Trulicity] 0.5 ml SQ MO 11/19/16 [History] Ezetimibe [Zetia] 10 mg PO DAILY 11/19/16 [History] Fish Oil/Borage/Flax/Om3,6,9#1 [[place] 3-6-9 Complex Softgel] 1 cap PO DAILY [History] Furosemide [Lasix] 20 mg PO DAILY PRN 11/19/16 [History] Insulin Aspart [NovoLOG] 23 units SQ 1700 11/19/16 [History] Insulin Glarg,Human.Rec.Analog [LantUS Solostar] 40 units SQ BID 11/19/16 [ History] Levothyroxine 200 mcg PO DAILY 11/19/16 [History] Levothyroxine Sodium 50 mcg PO DAILY 11/19/16 [History] Lisinopril [Prinivil] 40 mg PO DAILY 11/19/16 [History] Multivitamin [Daily Adriana] 1 tab PO DAILY 11/19/16 [History] Oxybutynin Chloride [Oxybutynin Chloride ER] 10 mg PO DAILY 11/19/16 [History] Rosuvastatin [Crestor] 20 mg PO BEDTIME 11/19/16 [History] Simethicone 125 mg PO BID PRN 11/19/16 [History] Cyclobenzaprine [Flexeril] 10 mg PO TID PRN #40 tablet 11/23/16 [Rx] Aspirin [Ecotrin] 325 mg PO DAILY 09/13/17 [History] Calcium Carb/Mag Ox/Zinc Sulf [Cuhjwgz-Ctaruabgp-Vpsi Tablet] 1 tab PO BEDTIME 09/13/17 [History] Cider Vinegar [Apple Cider Vinegar] 1 dose PO TID 09/13/17 [History] Fluconazole [Diflucan] 150 mg PO WEEKLY 09/13/17 [History] Glucagon,Human Recombinant [Glucagon Emergency Kit] 1 dose IM ONETIME PRN [History] Omeprazole 40 mg PO DAILY 09/13/17 [History] Oxybutynin [Oxybutynin ER] 10 mg PO DAILY 09/13/17 [History] metFORMIN HCl [Metformin HCl] 1,000 mg PO DAILY 09/13/17 [History] - CURRENT (IN HOUSE) MEDS Current Meds: Current Medications Lactated Ringer's (Ringers, Lactated) 1,000 mls @ 125 mls/hr IV ASDIRECTED BERTA Stop: 09/14/17 23:00 Lidocaine/Sodium Bicarbonate (Buffered Lidocaine 1% In Ns 8.4%) 0.25 ml IDERM ONETIME PRN PRN Reason: Prior to IV Start Stop: 09/14/17 18:00 Sodium Chloride (Saline Flush) 10 ml FLUSH ASDIRECTED PRN PRN Reason: Keep Vein Open Stop: 09/14/17 18:00 Discontinued Medications Bupivacaine HCl (Marcaine 0.25%) Confirm Administered Dose 30 ml .ROUTE .STK- MED ONE Stop: 09/14/17 06:57 Fentanyl (Sublimaze) Confirm Administered Dose 250 mcg .ROUTE .STK-MED ONE Stop: 09/14/17 07:15 Lidocaine HCl (Xylocaine-Mpf 1%) Confirm Administered Dose 4 mls @ as directed .ROUTE .STK-MED ONE Stop: 09/14/17 07:15 Midazolam HCl (Versed 1 Mg/Ml) Confirm Administered Dose 2 mg .ROUTE .STK-MED ONE Stop: 09/14/17 07:15 Ondansetron HCl (Zofran) Confirm Administered Dose 4 mg .ROUTE .STK-MED ONE Stop: 09/14/17 07:15 Propofol (Diprivan 20 Ml) Confirm Administered Dose 200 mg .ROUTE .STK-MED ONE Stop: 09/14/17 07:15 Rocuronium [place] (Zemuron) Confirm Administered Dose 50 mg .ROUTE .STK-MED ONE Stop: 09/14/17 07:15
--- NOTE | 2017-09-14 09:14 | PCM.POSTAN ---
POST ANESTHESIA ASSESSMENT - MENTAL STATUS Mental Status: Alert, Oriented - VITAL SIGNS Pulse Rate: 104 SaO2: 96 Resp Rate: 11 Blood Pressure: 153/97 Temperature: 99.1 F - RESPIRATORY Respiratory Status: Respiratory Rate WNL, Airway Patent, O2 Saturation Stable, Supplemental Oxygen - CARDIOVASCULAR CV Status: Pulse Rate WNL, Blood Pressure Stable, Elevated Blood Pressure - GASTROINTESTINAL GI Status: No Symptoms - PAIN Pain Score: 0 (denies) - POST OP HYDRATION Hydration Status: Adequate & Stable
--- NOTE | 2017-09-14 11:06 | PCM48HPAN ---
Post Anesthesia Note - EVALUATION WITHIN 48HRS OF ANESTHETIC Vital Signs in Normal Range: Yes Patient Participated in Evaluation: Yes Respiratory Function Stable: Yes Airway Patent: Yes Cardiovascular Function Stable: Yes Hydration Status Stable: Yes Pain Control Satisfactory: Yes Nausea and Vomiting Control Satisfactory: Yes Mental Status Recovered: Yes (sitting up in bed talking)
--- NOTE | 2017-09-14 11:10 | PCM.OPNOTE ---
- General Post-Op/Procedure Note Date of Surgery/Procedure: 09/14/17 Operative Procedure(s): Laparoscopic ventral hernia repair for incarcerated ventral hernia, omentum Findings: l.6cm ventral hernia with incarcerated omentum Pre Op Diagnosis: ventral hernia,morbid obesity type 3 diabetes Post-Op Diagnosis: Same Anesthesia Technique: General ET Tube Primary Surgeon: Donis Borden Anesthesia Provider: Trixie Abreu Complications: None Condition: Good Free Text/Narrative:: Intake & Output 09/13/17 09/14/17 09/14/17 22:59 06:59 14:59 Intake Total 125 Balance 125 laparoscopic ventral hernia repair with mesh.
[2017-09-14 11:50] VITALS: BP 122/70
--- NOTE | 2017-09-14 14:42 | OR ---
DATE OF OPERATION: 09/14/2017 SURGEON: Donis Borden MD OPERATION PERFORMED: Laparoscopic ventral hernia repair. ANESTHESIA: General. INDICATION: This 57-year-old female has a symptomatic ventral hernia. She has difficulty reducing this. She had a laparoscopic hysterectomy for endometrial cancer and had a small hernia that was primarily repaired. Surgery is indicated. She is an insulin-dependent diabetic with morbid obesity and comorbidities as listed in the history and physical. Ventral hernia repair is planned and a laparoscopic approach is discussed with her. DESCRIPTION OF PROCEDURE: The patient is brought to surgery. She is placed in the supine position, where general anesthesia is induced. After intubation, she is then prepped with ChloraPrep, and she is draped widely in the usual manner. Appropriate consents were obtained and a time-out was done prior to the draping. A small left upper quadrant subcostal incision is made and a Veress needle is inserted without difficulty. Pneumoperitoneum is created. CO2 was infiltrated to about 2.5 L. Following this, we used a 5-mm port, which is screwed in without difficulty. We used the 5-mm 30-degree scope. We have nice entry into the abdomen with no evidence of any intraabdominal problems. The hernia has incarcerated omentum. There are also some adhesions to the falciform ligament with an internal hernia mechanism. Under visualization, I placed a 5-mm port caudad to our first port without difficulty and using the same technique. Then, under visualization, we placed a 12-mm port. Using these 2 ports with the camera in the left upper quadrant, the omentum is grasped, and we used the Harmonic to divide this. There is no significant bleeding and no more hernia contents. The abdominal defect is measured at about 1.8 cm. In view of this, we select an 11.4 cm kobuk of Ventralight mesh. We placed 2-0 Prolene in the middle of this mesh after marking this appropriately and then after wetting this down briefly, we inserted this through the 12-mm port. We used a fascial closure device to grasp the suture. This is gently brought up through the abdominal wall after making a small boone. Then, we used a Securestrap to anchor this in place without difficulty. The suture is removed. We take pictures. The omentum that is adherent to the falciform ligament is divided so that she will not have a mechanism for an internal hernia in the future. I see no abnormalities in the pelvis. There is no evidence of any metastatic endometrial cancer. The liver looks normal, at least, the part that we can see. There are no problems in the stomach or gas in the stomach. Marcaine is placed in the preperitoneal space on the ports and around the mesh. The ports are removed. Closure was done with 4-0 Monocryl and Dermabond was placed. ESTIMATED BLOOD LOSS: About 3 mL. PREOPERATIVE DIAGNOSIS: Ventral hernia. POSTOPERATIVE DIAGNOSIS: Incarcerated ventral hernia with omentum. She tolerates the procedure well. Her intraoperative blood sugar was 160, and this will be checked. I would anticipate her discharge in the near future. XIOMARA /[id number]
== END | disposition home or self-care (01) ==
LOC: JD.SDS 06:50
PROVIDERS: ATTEND Surgery
DX: K43.6 Other and unspecified ventral hernia with obstruction, without gangrene (principal); I70.0 Atherosclerosis of aorta; E11.9 Type 2 diabetes mellitus without complications; E66.01 Morbid (severe) obesity due to excess calories; I10 Essential (primary) hypertension; E03.9 Hypothyroidism, unspecified; E78.00 Pure hypercholesterolemia, unspecified; K21.9 Gastro-esophageal reflux disease without esophagitis; M06.9 Rheumatoid arthritis, unspecified; Z90.49 Acquired absence of other specified parts of digestive tract; Z79.4 Long term (current) use of insulin; Z79.82 Long term (current) use of aspirin; Z79.899 Other long term (current) drug therapy; Z96.651 Presence of right artificial knee joint; Z88.8 Allergy status to other drugs, medicaments and biological substances; Z68.30 Body mass index [BMI] 30.0-30.9, adult; Z98.890 Other specified postprocedural states; Z98.51 Tubal ligation status
CPT/HCPCS: 36415; 49653; 80048; 82962; 85025; C1781; J0690; J1170; J1885; J2250; J2405; J2710; J3010; J3490; J7120; J2704

== ENCOUNTER 2019-10-18 12:45 | Emergency (ER) | payer BC ==
[2019-10-18 13:25] VITALS: BP 165/80; PULSE 97
--- NOTE | 2019-10-18 14:19 | EDM.PDOC ---
ED HPI GENERAL MEDICAL PROBLEM - General Chief Complaint: Respiratory Problem Stated Complaint: COUGH/SOB Time Seen by Provider: 10/18/19 13:59 Source of Information: Reports: Patient, RN Notes Reviewed History Limitations: Reports: No Limitations - History of Present Illness INITIAL COMMENTS - FREE TEXT/NARRATIVE: The patient is a 59-year-old female who presents to the ED for ongoing cold- like symptoms. She states that this started with a head cold last week, sore throat. She states that over the last few days however that her cough is worsened, and she is getting quite a bit of brown-colored phlegm out. She did notice today however that she is getting some small streaks of blood in her phlegm as well. She has not had any obvious fevers or chills, she just feels generally unwell. She states that her sore throat does feel better, and her head congestion feels better. She notes no history of asthma or other lung issues. She does take quite a few medications on a regular basis, she is diabetic. She has been taking zrxr-spe-[id number] medications that seems to help the cough, along with Coricidin. She had an appointment to be evaluated at the [facility] today, but they referred her to the ER for evaluation and management as she had cough and other cold-like symptoms and they were worried about coronavirus. - Related Data Allergies Allergy/AdvReac Type Severity Reaction Status Date / Time dapagliflozin [From [facility]] Allergy Rash Verified 10/18/19 13:20 hydrochlorothiazide AdvReac vision Verified 10/18/19 13:20 changes Home Meds: Home Meds Dulaglutide [Trulicity] 0.5 ml SQ MO 11/19/16 [History] Ezetimibe [Zetia] 10 mg PO DAILY 11/19/16 [History] Fish Oil/Borage/Flax/Om3,6,9 1 [[place] 3-6-9 Complex Softgel] 1 cap PO DAILY [History] Furosemide [Lasix] 20 mg PO DAILY PRN 11/19/16 [History] Insulin Aspart [NovoLOG] 23 units SQ 1700 11/19/16 [History] Insulin Glarg,Human.Rec.Analog [LantUS Solostar] 40 units SQ BID 11/19/16 [ History] Levothyroxine 200 mcg PO DAILY 11/19/16 [History] Levothyroxine Sodium 50 mcg PO DAILY 11/19/16 [History] Multivitamin [Daily Adriana] 1 tab PO DAILY 11/19/16 [History] Oxybutynin Chloride [Oxybutynin Chloride ER] 10 mg PO DAILY 11/19/16 [History] Rosuvastatin [Crestor] 20 mg PO BEDTIME 11/19/16 [History] Simethicone 125 mg PO BID PRN 11/19/16 [History] lisinopriL [Prinivil] 40 mg PO DAILY 11/19/16 [History] Cyclobenzaprine [Flexeril] 10 mg PO TID PRN #40 tablet 11/23/16 [Rx] Aspirin [Ecotrin] 325 mg PO DAILY 09/13/17 [History] Calcium Carb/Mag Ox/Zinc Sulf [Mxdmpel-Jadwfnlhh-Iduc Tablet] 1 tab PO BEDTIME 09/13/17 [History] Cider Vinegar [Apple Cider Vinegar] 1 dose PO TID 09/13/17 [History] Fluconazole [Diflucan] 150 mg PO WEEKLY 09/13/17 [History] Glucagon,Human Recombinant [Glucagon Emergency Kit] 1 dose IM ONETIME PRN [History] Omeprazole 40 mg PO DAILY 09/13/17 [History] Oxybutynin [Oxybutynin ER] 10 mg PO DAILY 09/13/17 [History] metFORMIN HCl [Metformin HCl] 1,000 mg PO DAILY 09/13/17 [History] Azithromycin 250 mg PO ASDIRECTED #6 tablet 10/18/19 [Rx] Past Medical History HEENT History: Reports: Impaired Vision, Other (See Below) Other HEENT History: wears glasses Cardiovascular History: Reports: High Cholesterol, Hypertension, Other (See Below) Other Cardiovascular History: irregular heart beat, palpitations Respiratory History: Reports: None Gastrointestinal History: Reports: GERD Genitourinary History: Reports: Other (See Below) Other Genitourinary History: stress incontinence, urinary disorder [employer]OP[employer]ICAL [employer]ORATORY CHIEF History: Reports: Other (See Below) Other GEOPHYSICAL LABORATORY CHIEF History: vaginal hemorrhage, vaginitis Musculoskeletal History: Reports: Osteoarthritis, RA Other Musculoskeletal History: bilateral carpal tunnel syndrome Neurological History: Reports: None Psychiatric History: Reports: None Endocrine/Metabolic History: Reports: Diabetes, Type II, Hypothyroidism, Obesity /BMI 30+, Vitamin D Deficiency Hematologic History: Reports: Other (See Below) Other Hematologic History: leukocystosis Immunologic History: Reports: None Oncologic (Cancer) History: Reports: Uterine, Other (See Below) Other Oncologic History: endometrial Dermatologic History: Reports: Other (See Below) Other Dermatologic History: groin furnucle, cutaneous candidasis - Infectious Disease History Infectious Disease History: Reports: None - Past Surgical History Head Surgeries/Procedures: Reports: None HEENT Surgical History: Reports: None Cardiovascular Surgical History: Reports: None Respiratory Surgical History: Reports: None GI Surgical History: Reports: Colonoscopy, EGD, Hernia Repair/Other, Other (See Below) Other GI Surgeries/Procedures: sigmoidoscopy Female Surgical History: Reports: Hysterectomy, Tubal Ligation Endocrine Surgical History: Reports: None Neurological Surgical History: Reports: None Musculoskeletal Surgical History: Reports: Arthroscopic Knee, Knee Replacement, Shoulder Surgery, Other (See Below) Other Musculoskeletal Surgeries/Procedures:: right total knee replacement Oncologic Surgical History: Reports: None Dermatological Surgical History: Reports: None Social & Family History - Family History Family Medical History: Noncontributory - Tobacco Use Smoking Status *Q: Never Smoker - Caffeine Use Caffeine Use: Reports: None - Recreational Drug Use Recreational Drug Use: No ED ROS GENERAL - Review of Systems Review Of Systems: See Below Constitutional: Reports: Malaise (generalized). Denies: Fever, Chills Respiratory: Reports: Cough, Sputum (moderate amount of brownish/yellow sputum) . Denies: Shortness of Breath, Wheezing Cardiovascular: Denies: Chest Pain GI/Abdominal: Denies: Abdominal Pain, Diarrhea, Nausea, Vomiting Skin: Denies: Cyanosis, Pallor ED EXAM, GENERAL - Physical Exam Exam: See Below Exam Limited By: No Limitations General Appearance: Alert, WD/WN, No Apparent Distress Eye Exam: Bilateral Eye: EOMI, Normal Inspection, PERRL Ears: Normal External Exam Nose: Normal Inspection Throat/Mouth: Normal Inspection, Normal Lips, Normal Teeth, Normal Gums, Normal Oropharynx, Normal Voice, No Airway Compromise Head: Atraumatic, Normocephalic Neck: Normal Inspection Respiratory/Chest: No Respiratory Distress, Normal Breath Sounds, No Accessory Muscle Use, Chest Non-Tender, Rales (throughout bilateral lung ngo) Cardiovascular: Normal Peripheral Pulses, Regular Rate, Rhythm, No Murmur Peripheral Pulses: 3+: Radial (L), Radial (R) GI/Abdominal: Normal Bowel Sounds, Soft, Non-Tender, No Distention, No Mass Extremities: Normal Inspection, Non-Tender, Normal Capillary Refill Neurological: Alert, Oriented, Normal Cognition, No Motor/Sensory Deficits Psychiatric: Normal Affect, Normal Mood Course - Vital Signs Last Recorded V/S: Last Vital Signs Temp 97.4 F 10/18/19 13:21 Pulse 97 10/18/19 13:21 Resp 12 10/18/19 13:21 BP 165/80 H 10/18/19 13:21 Pulse Ox 95 10/18/19 13:21 - Orders/Labs/Meds Orders: Active Orders 24 hr Category Date Time Status CXR [Chest 1V Frontal] [CR] Stat Exams 10/18/19 13:16 Taken INFLUENZA A+B AG SCREEN [RM] Stat Lab 10/18/19 13:20 Ordered Isolation [COMM] Routine Oth 10/18/19 13:20 Ordered - Re-Assessments/Exams Free Text/Narrative Re-Assessment/Exam: 10/18/19 14:31 Patient presents to the ED for the evaluation of her ongoing cough and cold- like symptoms. She was sent here from the [facility] as they were concerned about coronavirus and spreading infection through their clinic. Patient was concerned about her brown phlegm she was coughing up along with the blood streaks. Chest x-ray doesn't demonstrate any obvious infiltrate at this time, however with her symptoms of coughing lots of junk up and it being over 7- 10 days of symptoms. I will start her on a azithromycin for outpatient management, she will take tmej-deu-yzhthzb cough medications as previously doing , she states this does seem to help quite a bit. Departure - Departure Time of Disposition: 14:17 Disposition: Home, Self-Care 01 Condition: Fair Clinical Impression: Community acquired pneumonia Qualifiers: Laterality: unspecified laterality Qualified Code(s): J18.9 - Pneumonia, unspecified organism - Discharge Information *PRESCRIPTION DRUG MONITORING PROGRAM REVIEWED*: No *COPY OF PRESCRIPTION DRUG MONITORING REPORT IN PATIENT DELLA: No Prescriptions: Azithromycin 250 mg PO ASDIRECTED #6 tablet Instructions: Community-Acquired Pneumonia, Adult, [id number] Referrals: Dhara Daley MD [Primary Care Provider] - Forms: ED Department Discharge Additional Instructions: You have been evaluated in the ED today for your cold like symptoms, cough, sore throat. Your chest x-ray did not show any obvious pneumonia, but due to you coughing brown-colored phlegm up, is likely you have more of a walking pneumonia of sorts versus bronchitis. You will be given a prescription for azithromycin, please take 2 tablets on day 1, and then 1 tablet until gone. Please increase your fluid intake. Get plenty of rest as well. You should feel better in a few days. Recommend that you take some yijh-gas-sykyqpv nasal decongestants, cough/cold remedies to combat this. Medicines like NyQuil, DayQuil, phenylephrine and other sinus decongestants are adequate. If your symptoms are not better in one week's time recommend that you follow up in a clinic or your primary care provider. Our [facility] clinic number is , the [facility] is [phone]. Any family practice provider would be able to provide you with the services. Please return to the ED if your symptoms change or worsen. Sepsis Event Note - Evaluation Sepsis Screening Result: No Definite Risk - Focused Exam Vital Signs: Vital Signs Temp Pulse Resp BP Pulse Ox 10/18/19 13:21 97.4 F 97 12 165/80 H 95 Date Exam was Performed: 10/18/19 Time Exam was Performed: 14:21 - My Orders Last 24 Hours: My Active Orders 10/18/19 13:16 CXR [Chest 1V Frontal] [CR] Stat 10/18/19 13:20 INFLUENZA A+B AG SCREEN [RM] Stat Isolation [COMM] Routine - Assessment/Plan Last 24 Hours: My Active Orders 10/18/19 13:16 CXR [Chest 1V Frontal] [CR] Stat 10/18/19 13:20 INFLUENZA A+B AG SCREEN [RM] Stat Isolation [COMM] Routine
--- NOTE | 2019-10-19 06:55 | CR ---
Chest: Portable view of the chest was obtained. Comparison: Prior chest x-ray of 07/05/14. Heart size is slightly generous but felt accentuated from portable technique. Tortuous thoracic aorta is noted. Lungs are clear with no acute parenchymal change. Bony structures are grossly intact. Impression: 1. Nothing acute is appreciated on portable chest x-ray. Diagnostic code #1 This report was dictated in MDT
== END 2019-10-18 14:35 | disposition home or self-care (01) ==
LOC: JD.ED 12:45
DX: J18.9 Pneumonia, unspecified organism (principal); E78.00 Pure hypercholesterolemia, unspecified; I10 Essential (primary) hypertension; K21.9 Gastro-esophageal reflux disease without esophagitis; M06.9 Rheumatoid arthritis, unspecified; E11.9 Type 2 diabetes mellitus without complications; E03.9 Hypothyroidism, unspecified; E66.9 Obesity, unspecified; Z88.8 Allergy status to other drugs, medicaments and biological substances; Z68.42 Body mass index [BMI] 45.0-49.9, adult; Z79.4 Long term (current) use of insulin; Z79.899 Other long term (current) drug therapy
CPT/HCPCS: 71045; 71045-26; 99283; 99283-25

== ENCOUNTER 2021-04-21 06:24 | Day surgery (SDC) | payer BC ==
[~2021-04-21 06:24] MED LIST changes: -Bupivacaine 0.25% 30 ML SDV ONE; -HYDROmorphone 1 MG/ML Syringe IVPUSH PRN; -HYDROmorphone 1 MG/ML Syringe ONE; -Ketorolac 30 MG/ML SDV ONE; -Lactated Ringers 1,000 ML ONE; -Lidocaine 1% 4 ML ONE; -Meperidine PF 50 MG/ML Syringe IVPUSH PRN; -Midazolam 1 MG/ML 2 ML SDV ONE; -Neostigmine Methylsulfate 1 MG/ML 5 ML Syringe ONE; -Ondansetron 4 MG/2 ML SDV IVPUSH PRN; -Ondansetron 4 MG/2 ML SDV ONE; -Propofol 200 MG/20 ML SDV ONE; -Rocuronium 50 MG/5 ML Vial ONE; -ceFAZolin 1 GM Vial ONE; -fentaNYL 100 MCG/2 ML SDV IVPUSH PRN; -fentaNYL 250 MCG/5 ML SDV ONE
[2021-04-21] MEDS ORDERED: Midazolam 1 MG/ML 2 ML SDV ONE (06:58)
[2021-04-21] MEDS ORDERED: fentaNYL 100 MCG/2 ML SDV ONE (06:58)
[2021-04-21] MEDS ORDERED: Propofol 200 MG/20 ML SDV ONE (06:58)
--- NOTE | 2021-04-21 07:19 | PCM.PREANE ---
Preanesthetic Assessment - Procedure Proposed Procedure: Screening Colonoscopy - Anesthesia/Transfusion/Family Hx Anesthesia History: Prior Anesthesia Without Reaction Family History of Anesthesia Reaction: No Transfusion History: No Prior Transfusion(s) Intubation History: Unknown - Review of Systems General: No Symptoms Pulmonary: No Symptoms (Former smoker:quit 2004) Cardiovascular: No Symptoms (HTN, elevated cholesterol), Dyspnea on Exertion Gastrointestinal: No Symptoms (GERD) Neurological: Numbness (neuropathy in lower extremities/ occational hand numbness) Other: Reports: None, Easy Bruising, Diabetes (am blood sugar= 120 at 0635), Thyroid Problems (hypothyroid) - Physical Assessment NPO Status Date: 04/20/21 NPO Status Time: 23:30 Vital Signs: HR: 84 B/P: 139/74 Resp: 16 Sat: 94% Temp: 98.7 Height: 1.5 m Weight: 110 kg ASA Class: 3 Mental Status: Alert & Oriented x3 Airway Class: Mallampati = 2 Dentition: Reports: Normal Dentition, [place] Thyro-Mental Finger Breadths: 3 Mouth Opening Finger Breadths: 3 ROM/Head Extension: Full Lungs: Clear to Auscultation, Normal Respiratory Effort, Decreased Breath Sounds Cardiovascular: Regular Rate, Regular Rhythm, No Murmurs - Lab Values: All labs reviewed and noted and within acceptable ranges to proceed with scheduled procedure. - Allergies Allergies/Adverse Reactions: Allergies Allergy/AdvReac Type Severity Reaction Status Date / Time dapagliflozin [From [facility]] Allergy Rash Verified 04/20/21 18:55 hydrochlorothiazide AdvReac vision Verified 04/20/21 18:55 changes - Anesthesia Plan Pre-Op Medication Ordered: None - Acknowledgements Anesthesia Type Planned: MAC Pt an Appropriate Candidate for the Planned Anesthesia: Yes Alternatives and Risks of Anesthesia Discussed w Pt/Guardian: Yes Pt/Guardian Understands and Agrees with Anesthesia Plan: Yes PreAnesthesia Questionnaire HEENT History: Reports: Impaired Vision, Other (See Below) Other HEENT History: wears glasses Cardiovascular History: Reports: High Cholesterol, Hypertension, Other (See Below) Other Cardiovascular History: irregular heart beat, palpitations Respiratory History: Reports: None Gastrointestinal History: Reports: GERD Genitourinary History: Reports: Other (See Below) Other Genitourinary History: stress incontinence, urinary disorder [employer] History: Reports: Other (See Below) Other OB/BYN History: vaginal hemorrhage, vaginitis Musculoskeletal History: Reports: Osteoarthritis, RA Other Musculoskeletal History: bilateral carpal tunnel syndrome Neurological History: Reports: None Psychiatric History: Reports: None Endocrine/Metabolic History: Reports: Diabetes, Type II, Hypothyroidism, Obesity/BMI 30+, Vitamin D Deficiency Hematologic History: Reports: Other (See Below) Other Hematologic History: leukocystosis Immunologic History: Reports: None Oncologic (Cancer) History: Reports: None, Uterine, Other (See Below) Other Oncologic History: endometrial Dermatologic History: Reports: Other (See Below) Other Dermatologic History: groin furnucle, cutaneous candidasis - Infectious Disease History Infectious Disease History: Reports: None - Past Surgical History Head Surgeries/Procedures: Reports: None HEENT Surgical History: Reports: None Cardiovascular Surgical History: Reports: None Respiratory Surgical History: Reports: None GI Surgical History: Reports: Colonoscopy, EGD, Hernia Repair/Other, Other (See Below) Other GI Surgeries/Procedures: sigmoidoscopy Female Surgical History: Reports: Hysterectomy, Tubal Ligation Male Surgical History: Reports: None Endocrine Surgical History: Reports: None Neurological Surgical History: Reports: None Musculoskeletal Surgical History: Reports: Arthroscopic Knee, Knee Replacement, Shoulder Surgery, Other (See Below) Other Musculoskeletal Surgeries/Procedures:: right total knee replacement Oncologic Surgical History: Reports: None Dermatological Surgical History: Reports: None - SUBSTANCE USE Recreational Drug Use History: No - HOME MEDS Home Medications: Home Meds Dulaglutide [Trulicity] 3 mg SQ MO 11/19/16 [History] Fish Oil/Borage/Flax/Om3,6,9 1 [[place] 3-6-9 Complex Softgel] 1 cap PO DAILY 11/19/16 [History] Insulin Aspart [NovoLOG] 23 units SQ 1700 11/19/16 [History] Insulin Glarg,Human.Rec.Analog [LantUS Solostar] 55 units SQ BID 11/19/16 [History] Levothyroxine 200 mcg PO DAILY 11/19/16 [History] Multivitamin [Daily Adriana] 1 tab PO DAILY 11/19/16 [History] Rosuvastatin [Crestor] 10 mg PO BEDTIME 11/19/16 [History] Simethicone 125 mg PO BID PRN 11/19/16 [History] lisinopriL [Prinivil] 40 mg PO DAILY 04/14/17 [History] Calcium Carb/Mag Ox/Zinc Sulf [Holtjky-Rzcvonswf-Gqgv Tablet] 3 tab PO BEDTIME 09/13/17 [History] Glucagon,Human Recombinant [Glucagon Emergency Kit] 1 dose IM ONETIME PRN 09/13/17 [History] Oxybutynin [Oxybutynin ER] 10 mg PO DAILY 09/13/17 [History] metFORMIN HCl [Metformin HCl] 1,000 mg PO BID 09/13/17 [History] Aspirin 81 mg PO DAILY 04/20/21 [History] Cayenne 450 mg PO DAILY 04/20/21 [History] Celecoxib 200 mg PO QAM 04/20/21 [History] Cholecalciferol (Vitamin D3) [Vitamin D3] 10 mcg PO DAILY 04/20/21 [History] Coconut Oil 1,000 mg PO DAILY 04/20/21 [History] D-Mannose [Azo D-Mannose] 1,000 mg PO QAM 04/20/21 [History] Folic Acid 1 mg PO DAILY 04/20/21 [History] Ketoprofen [Frotek] 1 dose TOP TID PRN 04/20/21 [History] Levothyroxine 25 mcg PO DAILY 04/20/21 [History] Lysine 1,000 mg PO TID 04/20/21 [History] Potassium Gluconate [Potassium] 99 mg PO DAILY 04/20/21 [History] Turmeric Root Extract [Turmeric Curcumin] 500 mg PO DAILY 04/20/21 [History] Vitamin B Complex [B Complex] 1 tab PO DAILY 04/20/21 [History] - CURRENT (IN HOUSE) MEDS Current Meds: Current Medications Lactated Ringer's (Ringers, Lactated) 1,000 mls @ 125 mls/hr IV ASDIRECTED BERTA Stop: 04/21/21 23:00 Lidocaine/Sodium Bicarbonate (Lidocaine 1%/Sod Bicarbonate In Ns 8.4% 1 Ml Syringe) 0.25 ml IDERM ONETIME PRN PRN Reason: Prior to IV Start Stop: 04/21/21 18:00 Sodium Chloride (Sodium Chloride 0.9% 10 Ml Syringe) 10 ml FLUSH ASDIRECTED PRN PRN Reason: Keep Vein Open Stop: 04/21/21 18:00 Discontinued Medications Fentanyl (Fentanyl 100 Mcg/2 Ml Sdv) Confirm Administered Dose 100 mcg .ROUTE .STK-MED ONE Stop: 04/21/21 06:59 Lactated Ringer's (Ringers, Lactated) 1,000 mls @ 125 mls/hr IV ASDIRECTED BERTA Stop: 03/31/21 23:00 Lidocaine/Sodium Bicarbonate (Lidocaine 1%/Sod Bicarbonate In Ns 8.4% 1 Ml Syringe) 0.25 ml IDERM ONETIME PRN PRN Reason: Prior to IV Start Stop: 03/31/21 23:00 Midazolam HCl (Midazolam 1 Mg/Ml 2 Ml Sdv) Confirm Administered Dose 2 mg .ROUTE .STK-MED ONE Stop: 04/21/21 06:59 Propofol (Propofol 200 Mg/20 Ml Sdv) Confirm Administered Dose 400 mg .ROUTE .STK-MED ONE Stop: 04/21/21 06:59 Sodium Chloride (Sodium Chloride 0.9% 10 Ml Syringe) 10 ml FLUSH ASDIRECTED PRN PRN Reason: Keep Vein Open Stop: 03/31/21 23:00
--- NOTE | 2021-04-21 08:24 | PCM.OPNOTE ---
- General Post-Op/Procedure Note Date of Surgery/Procedure: 04/21/21 Operative Procedure(s): Colonoscopy Findings: Normal colonoscopy Pre Op Diagnosis: Age-related colorectal cancer screening Post-Op Diagnosis: Normal colonoscopy Anesthesia Technique: MAC Primary Surgeon: Shawn Hunter Anesthesia Provider: Janett Herring EBL in mLs: 0 Complications: None Condition: Good Free Text/Narrative:: After the patient gave verbal and written consent she was placed on blood pressure and pulse ox monitoring. She was given IV sedation which she tolerated well. The olmpus colonoscope was inserted per rectum and advanced to cecum without difficulty. The ileocecal valve and appendiceal orifice were imaged documenting cecal intubation. The colonoscope was slowly withdrawn. The prep was excellent. The views were excellent. The mucosal surfaces were carefully examined. Colonoscope was then retroflexed in the rectum and the details are above. The patient left the procedure room in good condition and there were no complications.
--- NOTE | 2021-04-21 08:36 | PCM48HPAN ---
Post Anesthesia Note - EVALUATION WITHIN 48HRS OF ANESTHETIC Vital Signs in Normal Range: Yes Patient Participated in Evaluation: Yes Respiratory Function Stable: Yes Airway Patent: Yes Cardiovascular Function Stable: Yes Hydration Status Stable: Yes Pain Control Satisfactory: Yes Nausea and Vomiting Control Satisfactory: Yes Mental Status Recovered: Yes Vital Signs: Last Vital Signs Temp 97.3 04/21/21 0820 Pulse 82 04/21/21 0820 Resp 12 04/21/21 0820 BP 90/51 04/21/21 0820 Pulse Ox 92% 04/21/21 0820
[2021-04-21 09:47] VITALS: BP 142/75; PULSE 82
== END 2021-04-21 09:54 | disposition home or self-care (01) ==
LOC: JD.SDS 06:24
PROVIDERS: ATTEND Family Medicine
DX: Z12.11 Encounter for screening for malignant neoplasm of colon (principal); E78.5 Hyperlipidemia, unspecified; E03.9 Hypothyroidism, unspecified; E66.01 Morbid (severe) obesity due to excess calories; E11.29 Type 2 diabetes mellitus with other diabetic kidney complication; E55.9 Vitamin D deficiency, unspecified; I10 Essential (primary) hypertension; Z79.890 Hormone replacement therapy; Z87.891 Personal history of nicotine dependence; Z79.899 Other long term (current) drug therapy; Z88.8 Allergy status to other drugs, medicaments and biological substances; Z79.4 Long term (current) use of insulin; Z98.890 Other specified postprocedural states; Z68.42 Body mass index [BMI] 45.0-49.9, adult; Z01.812 Encounter for preprocedural laboratory examination; Z20.822 Contact with and (suspected) exposure to COVID-19
CPT/HCPCS: 45378; 87635; J2250; J2370; J2704; J3010; J7120; 00812; U0002

== ENCOUNTER 2021-06-15 08:40 | Day surgery (SDC) | payer BC ==
[~2021-06-15 08:40] MED LIST changes: +Acetaminophen 325 MG Tab PO SCH; +Morphine 8 MG, EPINEPHrine 0.3 MG, Cefuroxime 750 MG, Ketorolac 30 MG, Sodium Chloride ... PRN; +Pregabalin 25 MG Cap PO SCH; +oxyCODONE ER 10 MG TAB.ER PO SCH
[2021-06-15] MEDS ORDERED: Vancomycin 1 GM, Vancomycin 500 MG in Sodium Chloride 0.9% 500 ML IV ONE ×7 (09:15→10:00)
[2021-06-15] MEDS ORDERED: Vancomycin 1 GM SDV ONE (11:31)
--- NOTE | 2021-06-15 11:46 | PCM.PREANE ---
Preanesthetic Assessment - Procedure Proposed Procedure: left total knee arthroplasty - Anesthesia/Transfusion/Family Hx Anesthesia History: Prior Anesthesia Without Reaction Family History of Anesthesia Reaction: No Transfusion History: No Prior Transfusion(s) Intubation History: Unknown - Review of Systems General: No Symptoms Pulmonary: No Symptoms Cardiovascular: Dyspnea on Exertion Gastrointestinal: No Symptoms Neurological: Numbness (fingers and feet at times) Other: Reports: Diabetes (this am check was 82), Thyroid Problems (hypothyroid ) - Physical Assessment NPO Status Date: 06/14/21 NPO Status Time: 00:00 Vital Signs: Last Vital Signs Temp 37.3 C 06/15/21 09:05 Pulse 82 06/15/21 09:05 Resp 18 06/15/21 09:05 BP 142/65 H 06/15/21 09:05 Pulse Ox 94 L 06/15/21 09:05 Height: 1.52 m Weight: 109.9 kg ASA Class: 3 Mental Status: Alert & Oriented x3 Airway Class: Mallampati = 3 Dentition: Reports: Normal Dentition, [place](s) Thyro-Mental Finger Breadths: 2 Mouth Opening Finger Breadths: 2 ROM/Head Extension: Full Lungs: Clear to Auscultation, Normal Respiratory Effort, Decreased Breath Sounds Cardiovascular: Regular Rate, Regular Rhythm - Imaging/EKG Impressions: EKG SR rate 74 - Allergies Allergies/Adverse Reactions: Allergies Allergy/AdvReac Type Severity Reaction Status Date / Time dapagliflozin [From [facility]] Allergy Rash Verified 06/15/21 10:47 hydrochlorothiazide AdvReac vision Verified 06/15/21 10:47 changes - Anesthesia Plan Pre-Op Medication Ordered: None - Acknowledgements Anesthesia Type Planned: Spinal Pt an Appropriate Candidate for the Planned Anesthesia: Yes Alternatives and Risks of Anesthesia Discussed w Pt/Guardian: Yes Pt/Guardian Understands and Agrees with Anesthesia Plan: Yes PreAnesthesia Questionnaire HEENT History: Reports: Impaired Vision, Other (See Below) Other HEENT History: wears glasses Cardiovascular History: Reports: High Cholesterol, Hypertension, Other (See Below) Other Cardiovascular History: irregular heart beat, palpitations Respiratory History: Reports: None Gastrointestinal History: Reports: GERD Genitourinary History: Reports: Other (See Below) Other Genitourinary History: stress incontinence, urinary disorder [employer]IVER'[employer] TENDER History: Reports: Endometrial Ablation, Other (See Below) Other OB/BYN History: vaginal hemorrhage, vaginitis Musculoskeletal History: Reports: Osteoarthritis, RA Other Musculoskeletal History: bilateral carpal tunnel syndrome Neurological History: Reports: None Psychiatric History: Reports: None Endocrine/Metabolic History: Reports: Diabetes, Type II, Hypothyroidism, Obesity/BMI 30+, Vitamin D Deficiency Hematologic History: Reports: None, Other (See Below) Other Hematologic History: leukocystosis Immunologic History: Reports: None Oncologic (Cancer) History: Reports: Uterine, Other (See Below) Other Oncologic History: endometrial Dermatologic History: Reports: Other (See Below) Other Dermatologic History: groin furnucle, cutaneous candidasis - Infectious Disease History Infectious Disease History: Reports: None - Past Surgical History Head Surgeries/Procedures: Reports: None HEENT Surgical History: Reports: None Cardiovascular Surgical History: Reports: None Respiratory Surgical History: Reports: None GI Surgical History: Reports: Colonoscopy, EGD, Hernia Repair/Other, Other (See Below) Other GI Surgeries/Procedures: sigmoidoscopy Female Surgical History: Reports: Hysterectomy, Tubal Ligation Male Surgical History: Reports: None Endocrine Surgical History: Reports: None Neurological Surgical History: Reports: None Musculoskeletal Surgical History: Reports: Arthroscopic Knee, Knee Replacement, Shoulder Surgery, Other (See Below) Other Musculoskeletal Surgeries/Procedures:: right total knee replacement Oncologic Surgical History: Reports: None Dermatological Surgical History: Reports: None - SUBSTANCE USE Tobacco Use Status *Q: Former Tobacco User Tobacco Use Within Last Twelve Months: No Second Hand Smoke Exposure: No Days Per Week of Alcohol Use: 0 Number of Drinks Per Day: 0 Total Drinks Per Week: 0 Recreational Drug Use History: No - HOME MEDS Home Medications: Home Meds Dulaglutide [Trulicity] 3 mg SQ MO 11/19/16 [History] Fish Oil/Borage/Flax/Om3,6,9 1 [[place] 3-6-9 Complex Softgel] 1 cap PO DAILY 11/19/16 [History] Insulin Aspart [NovoLOG] 20 units SQ 1700 11/19/16 [History] Insulin Glarg,Human.Rec.Analog [LantUS Solostar] 55 units SQ QAM 11/19/16 [History] Levothyroxine 200 mcg PO DAILY 11/19/16 [History] Rosuvastatin [Crestor] 10 mg PO BEDTIME 11/19/16 [History] Simethicone 125 mg PO BID PRN 11/19/16 [History] lisinopriL [Prinivil] 40 mg PO DAILY 11/19/16 [History] Calcium Carb/Mag Ox/Zinc Sulf [Kruqsdj-Bzjqyusso-Fsrh Tablet] 3 tab PO BEDTIME 09/13/17 [History] Glucagon,Human Recombinant [Glucagon Emergency Kit] 1 dose IM ONETIME PRN 09/13/17 [History] Oxybutynin [Oxybutynin ER] 10 mg PO DAILY 09/13/17 [History] metFORMIN HCl [Metformin HCl] 1,000 mg PO BID 09/13/17 [History] Cayenne 450 mg PO DAILY 04/20/21 [History] Coconut Oil 1,000 mg PO DAILY 04/20/21 [History] D-Mannose [Azo D-Mannose] 1,000 mg PO QAM 04/20/21 [History] Ketoprofen [Frotek] 1 dose TOP TID PRN 04/20/21 [History] Levothyroxine 25 mcg PO DAILY 04/20/21 [History] Lysine 1,000 mg PO TID 04/20/21 [History] Potassium Gluconate [Potassium] 99 mg PO DAILY 04/20/21 [History] Turmeric Root Extract [Turmeric Curcumin] 500 mg PO DAILY 04/20/21 [History] Vitamin B Complex [B Complex] 1 tab PO DAILY 04/20/21 [History] Apixaban [Eliquis] 2.5 mg PO BID #60 tablet 06/12/21 [Rx] Cholecalciferol (Vitamin D3) [Vitamin D3] 1,000 unit PO DAILY 06/12/21 [History] Cyclobenzaprine [Flexeril] 10 mg PO BID PRN #20 tab 06/12/21 [Rx] Insulin Glargine,Hum.Rec.Anlog [Lantus Solostar] 52 units SQ QPM 06/12/21 [History] Multivitamin 1 tab PO DAILY 06/12/21 [History] amLODIPine [Norvasc] 2.5 mg PO DAILY 06/12/21 [History] oxyCODONE 5 - 10 mg PO Q4H PRN #40 tab 06/12/21 [Rx] - CURRENT (IN HOUSE) MEDS Current Meds: Current Medications Acetaminophen (Acetaminophen 325 Mg Tab) 975 mg PO ONETIME BERTA Stop: 06/15/21 18:00 Last Admin: 06/15/21 09:28 Dose: 975 mg Documented by: Morphine Sulfate 8 mg/Epinephrine HCl 0.3 mg/Cefuroxime Sodium 750 mg/Ketorolac Tromethamine 30 mg/Sodium Chloride 7.9 ml 0 mg .XX ASDIRECTED PRN PRN Reason: Pain Stop: 06/15/21 23:00 Lactated Ringer's (Ringers, Lactated) 1,000 mls @ 125 mls/hr IV ASDIRECTED BERTA Stop: 06/15/21 23:00 Last Admin: 06/15/21 09:20 Dose: 125 mls/hr Documented by: Lidocaine/Sodium Bicarbonate (Lidocaine 1%/Sod Bicarbonate In Ns 8.4% 1 Ml Syringe) 0.25 ml IDERM ONETIME PRN PRN Reason: Prior to IV Start Stop: 06/15/21 18:00 Last Admin: 06/15/21 09:20 Dose: 0.25 ml Documented by: Oxycodone HCl (Oxycodone Er 10 Mg Tab.Er) 10 mg PO ONETIME BERTA Stop: 06/15/21 16:00 Last Admin: 06/15/21 09:28 Dose: 10 mg Documented by: Pregabalin (Pregabalin 25 Mg Cap) 50 mg PO ONETIME BERTA Stop: 06/15/21 16:00 Last Admin: 06/15/21 09:28 Dose: 50 mg Documented by: Sodium Chloride (Sodium Chloride 0.9% 10 Ml Syringe) 10 ml FLUSH ASDIRECTED PRN PRN Reason: Keep Vein Open Stop: 06/15/21 18:00 Discontinued Medications Vancomycin HCl 1 gm/Vancomycin HCl 500 mg/ Sodium Chloride 500 mls @ 250 mls/hr IV ONETIME ONE Stop: 06/15/21 11:59 Last Admin: 06/15/21 11:37 Dose: 250 mls/hr Documented by: Tranexamic Acid (Tranexamic Acid 1,000 Mg/10 Ml Amp) Confirm Administered Dose 1,000 mg .ROUTE .STK-MED ONE Stop: 06/15/21 11:32 Vancomycin HCl (Pharmacy To Dose - Vancomycin) 1 dose .XX ONETIME ONE Stop: 06/15/21 08:59 Vancomycin HCl (Vancomycin 1 Gm Sdv) Confirm Administered Dose 1 gm .ROUTE .STK- MED ONE Stop: 06/15/21 11:32
[2021-06-15] MEDS ORDERED: Midazolam 1 MG/ML 2 ML SDV ONE ×2 (11:54→12:47)
[2021-06-15] MEDS ORDERED: fentaNYL 100 MCG/2 ML SDV ONE (11:54)
[2021-06-15] MEDS ORDERED: Propofol 200 MG/20 ML SDV ONE (11:55)
[2021-06-15] MEDS ORDERED: ceFAZolin 1 GM Vial ONE (11:55)
[2021-06-15] MEDS ORDERED: Lidocaine 1% 4 ML ONE (11:55)
[2021-06-15] MEDS ORDERED: Ropivacaine 0.5% 5 MG/ML 30 ML SDV ONE (13:55)
[2021-06-15] MEDS ORDERED: EPINEPHrine 1 MG/ML SDV ONE (13:55)
[2021-06-15] MEDS ORDERED: Ketorolac 30 MG/ML SDV IVPUSH PRN (14:15)
[2021-06-15] MEDS ORDERED: fentaNYL 100 MCG/2 ML SDV IVPUSH PRN (14:15)
--- NOTE | 2021-06-15 14:16 | PCM.POSTAN ---
POST ANESTHESIA ASSESSMENT - MENTAL STATUS Mental Status: Alert, Oriented - VITAL SIGNS Vital Signs: Last Vital Signs Temp 37.3 C 06/15/21 09:05 Pulse 82 06/15/21 09:05 Resp 18 06/15/21 09:05 BP 142/65 H 06/15/21 09:05 Pulse Ox 94 L 06/15/21 09:05 - RESPIRATORY Respiratory Status: Respiratory Rate WNL, Airway Patent, O2 Saturation Stable, Supplemental Oxygen - CARDIOVASCULAR CV Status: Pulse Rate WNL - GASTROINTESTINAL GI Status: No Symptoms - PAIN Pain Score: 0 - POST OP HYDRATION Hydration Status: Adequate & Stable - OBSERVATIONS Free Text/Narrative:: no anesthesia complications noted
--- NOTE | 2021-06-15 14:18 | PCM.SN.2 ---
- Free Text/Narrative Note: Left selective femoral nerve block at the adductor canal for post-procedure pain control under US guidance requested by Dr. Bennett. Time Out: 1357 Start: 1357 End: 1404 Chart reviewed. Consent signed. Questions answered. Appropriate monitors applied. Time out performed. Left mid-shaft femur identified with ultrasound, scanning medially of femur, the femoral artery in the adductor canal visualized, and the femoral nerve located laterally to the artery. The skin was prepped lateral to the ultrasound probe with chlorahexadine times two. The 21ga 4 insulated block needle was inserted under direct ultrasound guidance into the adductor canal. 25mL of 0.5% ropivacaine with 1:200,000 epinephrine was injected circumferentially around the nerve with intermittent negative aspiration noted. Patient tolerated the procedure well. Sterile technique noted along with sterile gloves, mask, and sterile probe cover. See picture on progress note and vital signs on nurses notes. Block completed in PACU. Judson Gloria CRNA
--- NOTE | 2021-06-15 14:51 | CR ---
Left knee: AP and lateral views of the left knee were obtained. Comparison: Prior CT left knee study of 06/05/21. Knee prosthesis is noted. Patellar prosthesis is seen. Components are aligned. Underlying bony structures show nothing acute. Soft tissue air is seen. Impression: 1. Satisfactory postoperative radiographic appearance of recent placed left knee prostheses. Diagnostic code #2
--- NOTE | 2021-06-15 15:01 | PCM48HPAN ---
Post Anesthesia Note - EVALUATION WITHIN 48HRS OF ANESTHETIC Vital Signs in Normal Range: Yes Patient Participated in Evaluation: Yes Respiratory Function Stable: Yes Airway Patent: Yes Cardiovascular Function Stable: Yes Hydration Status Stable: Yes Pain Control Satisfactory: Yes Nausea and Vomiting Control Satisfactory: Yes Mental Status Recovered: Yes Vital Signs: Last Vital Signs Temp 97.4 F 06/15/21 14:30 Pulse 89 06/15/21 14:30 Resp 21 H 06/15/21 14:30 BP 132/66 06/15/21 14:30 Pulse Ox 95 06/15/21 14:30 - COMMENTS/OBSERVATIONS Free Text/Narrative:: Awaiting for spinal to fully wear off and assessment by physical therapy.
[2021-06-15 15:03] VITALS: PULSE 69
[2021-06-15 16:12] VITALS: BP 133/64
--- NOTE | 2021-06-30 06:43 | PCM.OPNOTE ---
- General Post-Op/Procedure Note Date of Surgery/Procedure: 06/15/21 Operative Procedure(s): left total knee arthroplasty with bambi goran robotics Pre Op Diagnosis: left knee osteoarthrosis Post-Op Diagnosis: Same Anesthesia Technique: Local, MAC, Spinal Primary Surgeon: Paul Bennett Anesthesia Provider: Judson Gloria Supervisory Lifeguard: Christen Gutierrez Supervisory Lifeguard: Yumiko Chappell EBL in mLs: 300 Complications: None Condition: Good Free Text/Narrative:: 10/08 9mm 29x9
--- NOTE | 2021-06-30 07:34 | OR ---
DATE OF OPERATION: 06/15/2021 SURGEON: Paul Bennett MD OPERATION PERFORMED: Left total knee arthroplasty with [employer] robotics. PREOPERATIVE DIAGNOSIS: Left knee osteoarthrosis. POSTOPERATIVE DIAGNOSIS: Left knee osteoarthrosis. ANESTHESIA: Local MAC with spinal. ANESTHESIA PROVIDER: Darion Lepe. BUSINESS MAIL ENTRY CLERK: Christen Gutierrez PA-C; and Yumiko Chappell LPN. ESTIMATED BLOOD LOSS: 300 mL. COMPLICATIONS: None. CONDITION: Stable. IMPLANTS: 1. Ann[place]e size 3 press-fit CR femur. 2. Wynot size 3 press-fit tibial baseplate. 3. [place]e size 3 9 mm CS polyethylene insert. 4. Wynot size 29 x 9 mm press-fit asymmetric patella. DESCRIPTION OF PROCEDURE: The patient was identified in the preop holding area. Proper site was marked and identified by the surgeon. The patient was taken back to the operating theater, where after adequate anesthesia, the patient's left lower extremity had a nonsterile tourniquet applied and then it was sterilely prepped and draped in the usual sterile fashion. OR time-out was performed. The patient received 2 g IV Ancef. Leg diaz was then applied to the left lower extremity. At this time, the left lower extremity was exsanguinated. Tourniquet was insufflated to 250 mmHg. Standard anterior incision was made. Medial parapatellar arthrotomy was created. Deep fibers of the MCL were raised and anterior fat pad was resected. Attention was turned to the patella. Patella measured a 21, it was resected to a 13 for a 29 x 9 mm patella. Drill holes were then drilled. Attention was then turned to the femur. Two 4.0 Schanz pins were placed intra- incisionally on the femur for the Wynot Brandon robotic array and then 2 more were placed on the tibia 3 fingerbreadths below the tibial tubercle. The Wynot Brandon robotic arrays were placed on both the femur and the tibia at this time as well as checkpoints on the femur and tibia. Hip center rotation was then obtained. The medial and lateral malleoli were marked as well as the checkpoints were marked for the Wynot Brandon robotic plan. The patient's knee was brought to full extension, varus and valgus stresses were applied, and then into 90 degrees of flexion. Wynot Brandon robotic plan for this patient was then undertaken to match the flexion and extension gaps. A straight saw blade was then brought in. Tibial cut was completed as well as an anterior femoral cut, anterior chamfer cut, and posterior femoral cut. Saw blade was then switched out and the distal femoral cut as well as the posterior chamfer cut was completed. All bony fragments were removed. At this time, medial and lateral menisci were resected as well as any posterior osteophytes. Attention was turned to the tibia. The size 3 trial baseplate was placed on the tibia and a size 3 trial femur was placed on the femur. A size 3 9 mm trial poly was placed. The patient's knee was brought to full extension and flexion. Varus and valgus stresses were applied, was found to be stable with no instability. No signs of liftoff or loosening on the tibial baseplate. At this time, femoral drill holes were drilled, and the tibia was stamped and drilled in proper rotation. All trial implants were then removed. The size 3 tibial baseplate was impacted into place, size 3 femoral component was impacted into place, and then a size 3 9 mm CS polyethylene insert was impacted into place. A size 29 x 9 mm press-fit patella was then press-fit into place. The tourniquet was deflated. Bleeders were cauterized. 1 L pulse lavage irrigation with Ancef was irrigated through the knee along with 400 mL IrriSept irrigation. Periarticular injection was completed. Topical tranexamic acid and vancomycin powder were applied. All checkpoints and pins were removed. At this point, a #2 barbed suture was used for closure of the medial parapatellar arthrotomy in flexion. 2- 0 Vicryl and Stratafix were used for subcutaneous closure. Prineo was used for cutaneous closure. 3-0 nylons were used for closure of the pin holes on the tibia. The patient had a sterile soft dressing applied. The patient had an RENETTA wrap applied and was sent to PACU in stable condition. The patient tolerated the procedure well. MMODAL /[id number]
== END 2021-06-15 17:02 | disposition home or self-care (01) ==
LOC: JD.SDS 08:40
PROVIDERS: ATTEND Orthopaedic Surgery
DX: M17.12 Unilateral primary osteoarthritis, left knee (principal); E11.9 Type 2 diabetes mellitus without complications; I10 Essential (primary) hypertension; E78.00 Pure hypercholesterolemia, unspecified; E03.9 Hypothyroidism, unspecified; C56.9 Malignant neoplasm of unspecified ovary; E55.9 Vitamin D deficiency, unspecified; E66.01 Morbid (severe) obesity due to excess calories; Z87.891 Personal history of nicotine dependence; Z79.899 Other long term (current) drug therapy; Z98.890 Other specified postprocedural states; Z79.84 Long term (current) use of oral hypoglycemic drugs; Z79.4 Long term (current) use of insulin; Z79.890 Hormone replacement therapy; Z88.8 Allergy status to other drugs, medicaments and biological substances; Z68.42 Body mass index [BMI] 45.0-49.9, adult
CPT/HCPCS: 27447; 73560; 82947; 97116; 97161; A9270; C1713; C1776; J0171; J0690; J0697; J1885; J2250; J2270; J2370; J2704; J2795; J3010; J3370; J7040; J7120; 01402